=== PATIENT | male | born 1955 | race Caucasian/White ===

== ENCOUNTER 2017-04-01 12:56 | Inpatient (IN) | payer SELFPAY ==
[2017-04-01] VITALS (7 sets, daily range): BP systolic 102–153; BP diastolic 2–77; PULSE 94–121; RESP 18–22; TEMP 97.6–98.8; O2SAT 98–100
[~2017-04-01] VITALS: Ht 180.3 cm; Wt 75.0 kg
[2017-04-01] MEDS ORDERED: SODIUM CHLOR 0.9% 1000 ML INJ 1,000 ML IV ONE (13:18)
[2017-04-01] MEDS ORDERED: LEVE500 PO (13:21)
[2017-04-01] MEDS ORDERED: METO25TA3 PO (13:21)
[2017-04-01] MEDS ORDERED: OXYC1TAB63 PO (13:21)
--- NOTE | 2017-04-01 13:28 | PD ---
HPI Chief Complaint: Wound/Suture/Staple Re-Check Time Seen by Provider: 13:18 Travel History International Travel<30 days: No Contact w/Intl Traveler<30days: No Traveled to known affect area: No History of Present Illness HPI 62-year-old male with history of left shoulder surgery done after a fracture 2 weeks ago at [facility], presents to the ER today because he has been feeling several days of weakness and dizziness, has noticed in the past 4-5 days that there is increased redness in the left shoulder wound area, does not feeling well. He is a fairly poor historian. He states that he has noticed some redness coming down his left shoulder to chest wall area, states it feels a little bit like sunburn. However, he states he has not been in the sun very much. Modifying Factors: None Associated Signs & Symptoms: Left shoulder wound area pain, swelling, redness, general weakness Risk Factors: Left shoulder injury about 2 weeks ago PFSH Past Medical History Arthritis: No Asthma: No Autoimmune Disease: No Blood Disorders: No Anxiety: Yes Depression: Yes Heart Rhythm Problems: No Cancer: Yes (SKIN) Cardiac Catheterization: No Cardiovascular Problems: No High Cholesterol: No Chemotherapy: No Chest Pain: No Congestive Heart Failure: No COPD: No Cerebrovascular Accident: No Diabetes: No Diminished Hearing: No Endocrine: No Gastrointestinal Disorders: No Genitourinary: No Headaches: No Hypertension: No Immune Disorder: No Implanted Vascular Access Dvce: No Musculoskeletal: Yes (HX OF LEFT SCIATICA) Neurologic: Yes Psychiatric: Yes Reproductive: No Respiratory: No Immunizations Current: No Migraines: No Myocardial Infarction: No Radiation Therapy: No Seizures: Yes Sleep Apnea: No Thyroid Disease: No Past Surgical History AICD: No Arteriovenous Shunt: No Coronary Artery Bypass Graft: No Insulin Pump: No Joint Replacement: No Pacemaker: No Other Surgery: Yes (CANCER SURGERY PER PATIENT) Social History Alcohol Use: Yes (4-5 BEERS A DAY) Tobacco Use: Yes (APPROX 10 CIGARETTES A DAY) Substance Use: No Allergies-Medications (Allergen,Severity, Reaction): Coded Allergies: penicillin G (Unverified Allergy, Severe, RASH, 01/24/17) Reported Meds & Prescriptions Reported Meds & Active Scripts Active Reported Oxycodone-Acetaminophen 5-325 mg Tab 1 Tab PO Q6H PRN Metoprolol Tartrate 25 Mg Tab 25 Mg PO BID Keppra (Levetiracetam) 500 Mg Tab 500 Mg PO BID Review of Systems Except as stated in HPI: all other systems reviewed are Neg Physical Exam Narrative GENERAL: Well-developed elderly white male patient who is in moderate distress. Awake and oriented 3. SKIN: Focused skin assessment warm/dry. There is significant erythema and ecchymosis as well as edema over the left anterior shoulder wound area with erythema going down the left chest wall as well. Tender to palpation. HEAD: Atraumatic. Normocephalic. EYES: Pupils equal and round. No scleral icterus. No injection or drainage. ENT: No nasal bleeding or discharge. Mucous membranes pink and moist. NECK: Trachea midline. No JVD. CARDIOVASCULAR: Regular rate and rhythm. No murmur appreciated. RESPIRATORY: No accessory muscle use. Clear to auscultation. Breath sounds equal bilaterally. GASTROINTESTINAL: Abdomen soft, non-tender, nondistended. Hepatic and splenic margins not palpable. MUSCULOSKELETAL: No obvious deformities. No clubbing. No cyanosis. No edema. NEUROLOGICAL: Awake and alert. No obvious cranial nerve deficits. Motor grossly within normal limits. Normal speech. PSYCHIATRIC: Appropriate mood and affect; insight and judgment normal. Data Data Last Documented VS Vital Signs Date Time Temp Pulse Resp B/P (MAP) Pulse Ox O2 Delivery O2 Flow Rate FiO2 04/01/17 13:22 98 Room Air 04/01/17 13:15 98.8 117 20 Orders Orders Electrocardiogram (04/01/17 13:18) Complete Blood Count With Diff (04/01/17 13:18) Comprehensive Metabolic Panel (04/01/17 13:18) Lactic Acid Sepsis Protocol (04/01/17 13:18) Urinalysis - C+S If Indicated (04/01/17 13:18) Blood Culture (04/01/17 13:18) Chest, Single Ap (04/01/17 13:18) Blood Glucose (04/01/17 13:18) Ecg Monitoring (04/01/17 13:18) Iv Access Insert/Monitor (04/01/17 13:18) Oximetry (04/01/17 13:18) Oxygen Administration (04/01/17 13:18) Sodium Chlor 0.9% 1000 Ml Inj (Ns 1000 M (04/01/17 13:18) Shoulder, Limited(2vws) (04/01/17 13:18) Consult Orthopedic (04/01/17 ) Admit Order (Ed Use Only) (04/01/17 15:29) Labs Laboratory Tests Test 04/01/17 13:10 White Blood Count 7.0 TH/MM3 Red Blood Count 2.90 MIL/MM3 Hemoglobin 9.4 GM/DL Hematocrit 26.6 % Mean Corpuscular Volume 91.6 FL Mean Corpuscular Hemoglobin 32.4 PG Mean Corpuscular Hemoglobin Concent 35.4 % Red Cell Distribution Width 16.4 % Platelet Count 523 TH/MM3 Mean Platelet Volume 8.0 FL Neutrophils (%) (Auto) 59.8 % Lymphocytes (%) (Auto) 18.3 % Monocytes (%) (Auto) 21.1 % Eosinophils (%) (Auto) 0.1 % Basophils (%) (Auto) 0.7 % Neutrophils # (Auto) 4.2 TH/MM3 Lymphocytes # (Auto) 1.3 TH/MM3 Monocytes # (Auto) 1.5 TH/MM3 Eosinophils # (Auto) 0.0 TH/MM3 Basophils # (Auto) 0.0 TH/MM3 CBC Comment DIFF FINAL Differential Comment Blood Urea Nitrogen 4 MG/DL Creatinine 0.47 MG/DL Random Glucose 79 MG/DL Total Protein 6.6 GM/DL Albumin 2.4 GM/DL Calcium Level 8.0 MG/DL Alkaline Phosphatase 95 U/L Aspartate Amino Transf (AST/SGOT) 36 U/L Alanine Aminotransferase (ALT/SGPT) 28 U/L Total Bilirubin 0.4 MG/DL Sodium Level 125 MEQ/L Potassium Level 3.4 MEQ/L Chloride Level 92 MEQ/L Carbon Dioxide Level 21.3 MEQ/L Anion Gap 12 MEQ/L Estimat Glomerular Filtration Rate 181 ML/MIN Lactic Acid Level 2.4 mmol/L [facility] Medical Decision Making Medical Screen Exam Complete: Yes Emergency Medical Condition: Yes Medical Record Reviewed: Yes Interpretation(s) Laboratory Tests Test 04/01/17 13:10 Red Blood Count 2.90 MIL/MM3 (4.50-5.90) Hemoglobin 9.4 GM/DL (13.0-17.0) Hematocrit 26.6 % (39.0-51.0) Platelet Count 523 TH/MM3 (150-450) Monocytes (%) (Auto) 21.1 % (0.0-8.0) Monocytes # (Auto) 1.5 TH/MM3 (0-0.9) Blood Urea Nitrogen 4 MG/DL (7-18) Creatinine 0.47 MG/DL (0.60-1.30) Albumin 2.4 GM/DL (3.4-5.0) Calcium Level 8.0 MG/DL (8.5-10.1) Sodium Level 125 MEQ/L (136-145) Potassium Level 3.4 MEQ/L (3.5-5.1) Chloride Level 92 MEQ/L (98-107) Lactic Acid Level 2.4 mmol/L (0.4-2.0) Last 24 hours Impressions Shoulder X-Ray 04/01/178 Signed Impressions: Service Date/Time: Saturday, April 01, 2017 13:48 - CONCLUSION: Proximal humeral fracture with surgical hardware over the humeral head. The hardware does not connected to the humeral shaft. The humeral shaft appears medially and proximally displaced. Severo Ignacio MD Chest X-Ray 04/01/17 7815 Signed Impressions: Service Date/Time: Saturday, April 01, 2017 13:44 - CONCLUSION: No acute cardio pulmonary disease. Zack Osorio Jr., MD Differential Diagnosis Dependent edema versus cellulitis versus wound infection versus sepsis Narrative Course X-rays show hardware dislodgment in the left humerus ORIF area. White count was otherwise unremarkable. At this point, case was discussed with Dr. Duenas who is covering for Dr. Lara before orthopedics, states he would like the patient to be medically admitted and Dr. Lara be who is on-call tomorrow can see the patient. Patient will likely need further surgical care for this issue. Case was discussed with family practice resident service for admission. Diagnosis Primary Impression: Painful orthopaedic hardware Additional Impression: Humeral fracture Admitting Information Admitting Physician Requests: Admit Tash Navarro MD Apr 01, 2017 13:28
[2017-04-01 13:42] LABS: AUTOMATED NEUTROPHIL # 4.2 TH/MM3 (1.8-7.7); BASOPHIL % 0.7 % (0.0-2.0); EOSINOPHIL % 0.1 % (0.0-4.0); HEMATOCRIT 26.6 % (39.0-51.0); HEMO FLAGS DIFF FINAL; LYMPH % 18.3 % (9.0-44.0); LYMPHOCYTE # 1.3 TH/MM3 (1.0-4.8); MEAN CELL VOLUME 91.6 FL (80.0-100.0); MEAN CORPUSCULAR HEMOGLOBIN 32.4 PG (27.0-34.0); MEAN CORPUSCULAR HGB CONC 35.4 % (32.0-36.0); MONO % 21.1 % (0.0-8.0); NEUT % 59.8 % (16.0-70.0); PLATELET COUNT 523 TH/MM3 (150-450); RED CELL DISTRIBUTION WIDTH 16.4 % (11.6-17.2)
[2017-04-01 14:16] LABS: ANION GAP 12 MEQ/L (5-15); AST (GOT) 36 U/L (15-37); BICARBONATE 21.3 MEQ/L (21.0-32.0); BLOOD UREA NITROGEN 4 MG/DL (7-18); CHLORIDE 92 MEQ/L (98-107); GLOMERULAR FILTRATION RATE 181 ML/MIN (>89); POTASSIUM 3.4 MEQ/L (3.5-5.1); SODIUM (NA) 125 MEQ/L (136-145)
--- NOTE | 2017-04-01 14:16 | RADRPT ---
EXAM DATE/TIME: 04/01/2017 13:44 [facility] COMPARISON: CHEST SINGLE AP, February 15, 2016, 19:40. INDICATIONS : Syncope. Possible seizure. MEDICAL HISTORY : Seizures. SURGICAL HISTORY : ORIF left shoulder. ENCOUNTER: Initial ACUITY: 1 day PAIN SCORE: 5/10 LOCATION: Bilateral chest FINDINGS: 2 portable frontal views of the chest show the heart to be normal in size. Lungs are clear. No effusi ons or infiltrates. Old left-sided rib fractures. CONCLUSION: No acute cardio pulmonary disease. Zack Osorio Jr., MD on April 01, 2017 at 14:14 Board Certified Radiologist. This report was verified electronically.
[2017-04-01 14:17] LABS: ALT (GPT) 28 U/L (12-78)
[2017-04-01 14:19] LABS: ALKALINE PHOSPHATASE 95 U/L (45-117); TOTAL BILIRUBIN ADULT 0.4 MG/DL (0.2-1.0)
--- NOTE | 2017-04-01 14:39 | RADRPT ---
EXAM DATE/TIME: 04/01/2017 13:48 [facility] COMPARISON: CHEST SINGLE AP, February 15, 2016, 19:40. CHEST SINGLE AP, April 01, 2017, 13:44. CHEST SINGLE AP, February 05, 2016, 18:13. INDICATIONS : Left shoulder pain. Possible fall. MEDICAL HISTORY : Seizures. SURGICAL HISTORY : ORIF left shoulder. ENCOUNTER: Initial ACUITY: 1 day PAIN SCORE: 10/10 LOCATION: Bilateral chest FINDINGS: There is fracture in the proximal left humeral shaft. The main distal humeral shaft fracture fragment is displaced medially and proximally. There is a surgical plate at the anterior lateral humeral head . This is secured to the humeral head. The distal part of the plate is not connected with the humeral shaft. There are 3 screws seen projecting over the humerus on the AP view. These appear anterior to the humerus on the lateral view. They are thought to be seen at the inferior most aspect of the later al image. The humeral head is grossly aligned with the glenoid. It does appear inferiorly displaced l ikely from hemarthrosis. The left acromioclavicular joint is aligned. Old left-sided rib fractures se en. Skin enio are seen over the left shoulder region. CONCLUSION: Proximal humeral fracture with surgical hardware over the humeral head. The hardware does not connect ed to the humeral shaft. The humeral shaft appears medially and proximally displaced. Severo Ignacio MD on April 01, 2017 at 14:33 Board Certified Radiologist. This report was verified electronically.
[2017-04-01] MEDS ORDERED: ONDANSETRON HCL 4 MG/2 ML VIAL IVP PRN (15:30)
[2017-04-01] MEDS ORDERED: NALOXONE HCL 0.4 MG/ML AMP IV PUSH PRN ×2 (15:30→17:30)
[2017-04-01] MEDS ORDERED: MAGNESIUM HYDROXIDE SUSP 30 ML CUP PO PRN (15:30)
[2017-04-01] MEDS ORDERED: BISACODYL 10 MG SUPP RECTAL PRN (15:30)
[2017-04-01] MEDS ORDERED: SODIUM CHLORIDE 0.9% FLUSH 10 ML FLUSH IV FLUSH PRN (15:30)
[2017-04-01] MEDS ORDERED: LACTULOSE SYRUP 20 GM/30 ML CUP PO PRN (15:30)
[2017-04-01] MEDS ORDERED: SENNOSIDES 8.6 MG TAB PO PRN (15:30)
[2017-04-01 15:33] LABS: LACTIC ACID GHOST NOT REPORTABLE
--- NOTE | 2017-04-01 15:33 | HHI.HP ---
HPI Service Family Medicine Team A Dr. Velez, attending Primary Care Physician No Primary Care Physician Admission Diagnosis left shoulder hardware dislodgment Diagnoses: International Travel<30 Days: No Contact w/Intl Traveler<30days: No History of Present Illness Patient is a 62-year-old male with a history of alcoholism, seizures, and atrial fibrillation who presents after possible fall and found to have hardware displacement. He notes he felt dizzy, lightheaded, and like he was about to fall so decided to go into a local store and seek help. No chest pain. Had difficulty breathing but resolved. He is unsure what causes him to fall. It is "something in the body chemistry." He went to OR at [facility] after a shoulder fracture and had repairs including pinning. He has discharge paperwork with him today which shows he was discharged after workup for seizure versus syncope and after management of left shoulder injury. As noted he had a long- standing seizure disorder prior to that admission in early March 2017 and was not taking his Keppra at that time. He also has a chronic user of alcohol endorsing today that he drinks 4-5 beers daily. Workup at [facility] include CT brain which was negative, x-ray of the left shoulder which showed a minimally comminuted displaced fracture of the surgical neck of the left humerus has a comminuted fracture of the olecranon ( elbow). He received a left ORIF of the humerus and olecranon by Dr. Estrada. Keppra was restarted in the hospital with no noted complications. He is unclear when his follow-up with orthopedic surgery was supposed to be. He continues to have enio in the arm. X-ray in the ED showed displaced hardware in the left shoulder. Review of Systems Constitutional: COMPLAINS OF: Fever (subjective), DENIES: Chills, Change in appetite Eyes: DENIES: Blurred vision, Diplopia Ears, nose, mouth, throat: DENIES: Tinnitus, Hearing loss, Oral lesions, Throat pain, Running Nose Respiratory: COMPLAINS OF: Shortness of breath, DENIES: Cough, Hemoptysis, Sputum production Cardiovascular: COMPLAINS OF: Palpitations, Lower Extremity Edema, DENIES: Chest pain Genitourinary: COMPLAINS OF: Urgency, DENIES: Hematuria, Dysuria Musculoskeletal: COMPLAINS OF: Joint pain (shoulder), DENIES: Joint Swelling, Back pain, Neck pain Integumentary: DENIES: Pruritus, Rash Hematologic/lymphatic: DENIES: Bruising, Lymphadenopathy Neurologic: COMPLAINS OF: Abnormal gait, Seizures, Poor Balance, DENIES: Headache, Localized weakness, Tremor Psychiatric: DENIES: Anxiety, Depression, Suicidal Ideation, Homicidal Ideation Past Family Social History Past Medical History Tachycardia Past Surgical History Left shoulder pinning Reported Medications Reported Meds & Active Scripts Active Reported Oxycodone-Acetaminophen 5-325 mg Tab 1 Tab PO Q6H PRN Metoprolol Tartrate 25 Mg Tab 25 Mg PO BID Keppra (Levetiracetam) 500 Mg Tab 500 Mg PO BID Allergies: Coded Allergies: penicillin G (Unverified Allergy, Severe, RASH, 01/24/17) Family History Refuses to discuss Social History Tobacco: Alcohol: 4-5 can of beers daily, alcoholic Illicit: denies Homeless Physical Exam Vital Signs Vital Signs Date Time Temp Pulse Resp B/P (MAP) Pulse Ox O2 Delivery O2 Flow Rate FiO2 04/01/17 13:22 98 Room Air 04/01/17 13:22 98 Room Air 04/01/17 13:15 98.8 117 20 102/57 (72) 100 Room Air 04/01/17 13:00 98.8 121 20 102/57 (72) Physical Exam GENERAL: Well-developed elderly male who is in no apparent distress. Left shoulder is notable abnormal. SKIN: Warm and dry.There is erythema and ecchymosis as well as edema over the left anterior shoulder wound area with erythema going down the left chest wall as well. Tender to palpation. HEAD: Atraumatic. Normocephalic. EYES: Pupils equal and round. Conjunctival injection noted. No drainage. EOMI. ENT: No nasal bleeding or discharge. Mucous membranes pink and moist. NECK: Trachea midline. No JVD. CARDIOVASCULAR: Tachycardic rate. No murmurs. 2+ pulses distally. RESPIRATORY: No accessory muscle use. Clear to auscultation with no wheezes or rhonchi. Breath sounds equal bilaterally. GASTROINTESTINAL: Abdomen soft, non-tender, nondistended. Hepatic and splenic margins not palpable. MUSCULOSKELETAL: Extremities aside from LUE without clubbing, cyanosis, or edema. No obvious deformities. NEUROLOGICAL: Awake and alert. 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 Motor grossly within normal limits. Five out of 5 muscle strength in the arms and legs. Normal speech. PSYCHIATRIC: Appropriate mood and affect; insight and judgment normal. He is agitated. Laboratory Laboratory Tests Test 04/01/17 13:10 White Blood Count 7.0 Red Blood Count 2.90 Hemoglobin 9.4 Hematocrit 26.6 Mean Corpuscular Volume 91.6 Mean Corpuscular Hemoglobin 32.4 Mean Corpuscular Hemoglobin Concent 35.4 Red Cell Distribution Width 16.4 Platelet Count 523 Mean Platelet Volume 8.0 Neutrophils (%) (Auto) 59.8 Lymphocytes (%) (Auto) 18.3 Monocytes (%) (Auto) 21.1 Eosinophils (%) (Auto) 0.1 Basophils (%) (Auto) 0.7 Neutrophils # (Auto) 4.2 Lymphocytes # (Auto) 1.3 Monocytes # (Auto) 1.5 Eosinophils # (Auto) 0.0 Basophils # (Auto) 0.0 CBC Comment DIFF FINAL Differential Comment Blood Urea Nitrogen 4 Creatinine 0.47 Random Glucose 79 Total Protein 6.6 Albumin 2.4 Calcium Level 8.0 Alkaline Phosphatase 95 Aspartate Amino Transf (AST/SGOT) 36 Alanine Aminotransferase (ALT/SGPT) 28 Total Bilirubin 0.4 Sodium Level 125 Potassium Level 3.4 Chloride Level 92 Carbon Dioxide Level 21.3 Anion Gap 12 Estimat Glomerular Filtration Rate 181 Lactic Acid Level 2.4 Date/Time Source Procedure Growth Status 04/01/17 13:25 Blood Peripheral Aerobic Blood Culture Pending Received 04/01/17 13:25 Blood Peripheral Anaerobic Blood Culture Pending Received Result Diagram: 04/01/17 1310 04/01/17 1310 Imaging Last Impressions Shoulder X-Ray 04/01/171317 Signed Impressions: Service Date/Time: Saturday, April 01, 2017 13:48 - CONCLUSION: Proximal humeral fracture with surgical hardware over the humeral head. The hardware does not connected to the humeral shaft. The humeral shaft appears medially and proximally displaced. Severo Ignacio MD Chest X-Ray 04/01/171317 Signed Impressions: Service Date/Time: Saturday, April 01, 2017 13:44 - CONCLUSION: No acute cardio pulmonary disease. MD Damian Dale Jr.i VTE Risk Assessment Caprini VTE Risk Assessment: Mod/High Risk (score >= 2) Caprini Risk Assessment Model Point Value = 1 Point Value = 2 Point Value = 3 Point Value = 5 Age 41-60 Minor surgery BMI > 25 kg/m2 Swollen legs Varicose veins or History of unexplained or recurrent spontaneous Oral contraceptives or hormone replacement Sepsis (< 1 month) Serious lung disease, including pneumonia (< 1 month) Abnormal pulmonary function Acute myocardial infarction Congestive heart failure (< 1 month) History of inflammatory bowel disease Medical patient at bed rest Age 61-74 Arthroscopic surgery Major open surgery (> 45 min) Laparoscopic surgery (> 45 min) Malignancy Confined to bed (> 72 hours) Immobilizing plaster cast Central venous access Age >= 75 History of VTE Family history of VTE Factor V Leiden Prothrombin [id number] Lupus anticoagulant Anticardiolipin antibodies Elevated serum homocysteine Heparin-induced thrombocytopenia Other congenital or acquired thrombophilia Stroke (< 1 month) Elective arthroplasty Hip, pelvis, or leg fracture Acute spinal cord injury (< 1 month) Prophylaxis Regimen Total Risk Factor Score Risk Level Prophylaxis Regimen 0-1 Low Early ambulation 2 Moderate Order ONE of the following: *Sequential Compression Device (SCD) *Heparin 5000 units SQ BID 3-4 Higher Order ONE of the following medications: *Heparin 5000 units SQ TID *Enoxaparin/Lovenox 40 mg SQ daily (WT < 150 kg, CrCl > 30 mL/min) *Enoxaparin/Lovenox 30 mg SQ daily (WT < 150 kg, CrCl > 10-29 mL/min) *Enoxaparin/Lovenox 30 mg SQ BID (WT < 150 kg, CrCl > 30 mL/min) AND/OR *Sequential Compression Device (SCD) 5 or more Highest Order ONE of the following medications: *Heparin 5000 units SQ TID (Preferred with Epidurals) *Enoxaparin/Lovenox 40 mg SQ daily (WT < 150 kg, CrCl > 30 mL/min) *Enoxaparin/Lovenox 30 mg SQ daily (WT < 150 kg, CrCl > 10-29 mL/min) *Enoxaparin/Lovenox 30 mg SQ BID (WT < 150 kg, CrCl > 30 mL/min) AND *Sequential Compression Device (SCD) Assessment and Plan Assessment and Plan 62M with seizure disorder and recent left shoulder ORIF who presents with displaced hardware in the left humerus. Orthopedic surgery consulted in the ED-- who performed ORIF at [facility] will evaluate the patient tomorrow. Patient will be kept NPO after midnight for this evaluation. He will be admitted with medical management of chronic conditions and pain control Continue home dose Keppra Continue home dose metoprolol Monitor on telemetry CIWA protocol with MVI Pain control with acetaminophen and [place] Code Status Full code Discussed Condition With Dr. Montes De Oca Problem List: (1) Humeral fracture ICD Codes: S42.309A - Unspecified fracture of shaft of humerus, unspecified arm , initial encounter for closed fracture Status: Acute (2) Painful orthopaedic hardware ICD Codes: T84.84XA - Pain due to internal orthopedic prosthetic devices, implants and grafts, initial encounter Status: Acute (3) Frequent falls ICD Codes: R29.6 - Repeated falls Status: Acute (4) Alcohol abuse ICD Codes: F10.10 - Alcohol abuse, uncomplicated Status: Chronic (5) Fluids/Electrolytes/Nutrition/Prophylaxis Plan: Fluids: tolerating PO Electrolytes: monitor and replete as needed Nutrition: heart-healthy diet DVT Prophylaxis: Early ambulation. SCDs. Hold pharmacologic intervention until post-operative GI Prophylaxis: Protonix 40mg daily given alcoholism Disposition: possible discharge 1-2 days post-operatively, pending surgical clearance Physician Certification 2 Midnight Certification Type: Admission for Inpatient Services Order for Inpatient Services The services are ordered in accordance with Medicare regulations or non- Medicare payer requirements, as applicable. In the case of services not specified as inpatient-only, they are appropriately provided as inpatient services in accordance with the 2-midnight benchmark. Estimated LOS (days): 3 days is the estimated time the patient will need to remain in the hospital, assuming treatment plan goals are met and no additional complications. Post-Hospital Plan: Not yet determined Eunice Martinez MD R2 Apr 01, 2017 15:33
[2017-04-01] MEDS: SODIUM CHLOR 0.9% 1000 ML INJ 1,000 ML IV SCH (15:37)
[2017-04-01 15:54] LABS: BLOOD, URINE NEG (NEG); GLUCOSE,URINE NEG (NEG); KETONE, URINE NEG (NEG); NITRITE,URINE NEG (NEG); PH, URINE 5.5 (5.0-8.5); URINE COLOR LIGHT-YELLOW (YELLW/STRAW)
[2017-04-01 16:01] LABS: COMMENT (UR) CATH-CULT NOT IND; CULTURE IF INDICATED CATH CULTURE NOT IND
--- NOTE | 2017-04-01 16:44 | EKG ---
Date Performed: 04/01/2017 Time Performed: 13:55:34 PTAGE: 62 years EKG: SINUS TACHYCARDIA WITH OCCASIONAL SUPRAVENTRICULAR PREMATURE COMPLEXES LOW QRS VOLTAGE IN P RECORDIAL LEADS ABNORMAL RHYTHM ECG PREVIOUS TRACING : 04/29/2016 16.24 Compared to prior tracing no significant change DOCTOR: Martha Ramirez Interpretating Date/Time 04/01/2017 16:43:42
[2017-04-01] MEDS ORDERED: MORPHINE SULFATE 4 MG/ML INJ IV PUSH PRN (17:30)
[2017-04-01] MEDS ORDERED: FLUMAZENIL 0.5 MG/5 ML VIAL IV PUSH PRN (17:30)
[2017-04-01] MEDS ORDERED: LORazepam 2 MG/ML VIAL IV PUSH PRN ×4 (17:30)
[2017-04-01] MEDS ORDERED: LORazepam 1 MG TAB PO PRN (17:30)
[2017-04-01] MEDS ORDERED: LORazepam 2 MG TAB PO PRN (17:30)
[2017-04-01] MEDS ORDERED: ACETAMINOPHEN/HYDROcodone 325 MG/5 MG TAB PO PRN (17:30)
[2017-04-01] MEDS: MULTIVITAMINS/MINERALS THERAPEUTIC TAB PO SCH (18:06)
[2017-04-01] MEDS: THIAMINE HCL 100 MG TAB PO SCH (18:06)
[2017-04-01] MEDS: FOLIC ACID 1 MG TAB PO SCH (18:07)
[2017-04-01] MEDS: ACETAMINOPHEN/HYDROcodone 325 MG/10 MG TAB PO PRN ×2 (18:07→22:41)
[2017-04-01] MEDS: PANTOPRAZOLE SOD 40 MG DELAYED RELEASE TAB PO SCH (18:07)
[2017-04-01 18:34] LABS: MAGNESIUM 1.6 MG/DL (1.5-2.5)
[2017-04-01] MEDS: levETIRAcetam 500 MG TAB PO SCH (20:00)
[2017-04-01] MEDS: DOCUSATE SODIUM 50 MG/SENNA 8.6 MG TAB PO SCH (20:00)
[2017-04-01] MEDS: METOPROLOL TARTRATE 25 MG TAB PO SCH (20:00)
[2017-04-01] MEDS: SODIUM CHLORIDE 0.9% FLUSH 10 ML FLUSH IV FLUSH SCH (20:02)
[2017-04-01] MEDS: ACETAMINOPHEN 325 MG TAB PO PRN (20:02)
[2017-04-01 20:38] LABS: APTT (PATIENT) 42.4 SEC (24.3-30.1); INTERNATIONAL NORMALIZED RATIO 1.1 RATIO; PROTHROMBIN TIME - PATIENT 11.9 SEC (9.8-11.6)
[2017-04-01] MEDS ORDERED: ENALAPRILAT 1.25 MG/ML VIAL IV PUSH PRN (23:00)
[2017-04-02] MEDS: SODIUM CHLOR 0.9% 1000 ML INJ 1,000 ML IV SCH ×3 (00:12→17:36)
[2017-04-02] MEDS: ACETAMINOPHEN/HYDROcodone 325 MG/10 MG TAB PO PRN ×6 (02:20→22:07)
[2017-04-02 04:15] VITALS: BP 146/83; PULSE 101; RESP 18; TEMP 97.8; O2SAT 100
[2017-04-02 06:30] LABS: PROTHROMBIN TIME - PATIENT 11.5 SEC (9.8-11.6)
[2017-04-02 06:34] LABS: ANION GAP 10 MEQ/L (5-15); AST (GOT) 32 U/L (15-37); BICARBONATE 23.7 MEQ/L (21.0-32.0); BLOOD UREA NITROGEN 5 MG/DL (7-18); CHLORIDE 95 MEQ/L (98-107); GLOMERULAR FILTRATION RATE 158 ML/MIN (>89); POTASSIUM 3.4 MEQ/L (3.5-5.1); SODIUM (NA) 129 MEQ/L (136-145)
[2017-04-02 06:35] LABS: AUTOMATED NEUTROPHIL # 3.9 TH/MM3 (1.8-7.7); BASOPHIL % 0.6 % (0.0-2.0); EOSINOPHIL % 0.2 % (0.0-4.0); HEMATOCRIT 24.9 % (39.0-51.0); HEMO FLAGS DIFF FINAL; LYMPH % 16.7 % (9.0-44.0); LYMPHOCYTE # 1.1 TH/MM3 (1.0-4.8); MEAN CELL VOLUME 92.9 FL (80.0-100.0); MEAN CORPUSCULAR HEMOGLOBIN 32.5 PG (27.0-34.0); MONO % 20.9 % (0.0-8.0); NEUT % 61.6 % (16.0-70.0); PLATELET COUNT 507 TH/MM3 (150-450); RED BLOOD COUNT 2.68 MIL/MM3 (4.50-5.90); RED CELL DISTRIBUTION WIDTH 16.6 % (11.6-17.2); WHITE BLOOD COUNT 6.3 TH/MM3 (4.0-11.0)
[2017-04-02 06:36] LABS: ALT (GPT) 27 U/L (12-78)
[2017-04-02 06:38] LABS: ALKALINE PHOSPHATASE 110 U/L (45-117); TOTAL BILIRUBIN ADULT 0.5 MG/DL (0.2-1.0)
--- NOTE | 2017-04-02 07:33 | PD.CONS ---
HPI Service Orthopedic Surgeons Consult Requested By Primary Care Physician No Primary Care Physician Admission Diagnosis left shoulder hardware dislodgment Diagnoses: Chief Complaint: Left shoulder pain History of Present Illness The patient is a 62-year-old homeless, alcoholic, with history of seizure disorder gentleman is approximately 2 weeks status post ORIF of his left proximal humerus and ORIF of his left olecranon after a fall while having a seizure. Patient presented overnight with unclear etiology but states he feels weak, sick, and unable to really walk. However, patient was clearly intoxicated upon arrival and not unable to get a clear history as to injury. He does reports he's had persistent left arm pain since his last admission. He denies any increased numbness or tingling. Patient does still have some weakness in the axillary nerve distribution with his deltoid. Review of Systems Constitutional: DENIES: Fever Endocrine: DENIES: Polyuria Eyes: DENIES: Blurred vision Ears, nose, mouth, throat: COMPLAINS OF: Throat pain Respiratory: DENIES: Cough Cardiovascular: DENIES: Chest pain Gastrointestinal: DENIES: Abdominal pain Genitourinary: DENIES: Urinary frequency Musculoskeletal: COMPLAINS OF: Joint pain, Joint Swelling Integumentary: DENIES: Rash Hematologic/lymphatic: COMPLAINS OF: Bruising Immunologic/allergic: DENIES: Eczema Neurologic: COMPLAINS OF: Seizures, Poor Balance Psychiatric: DENIES: Anxiety Past Family Social History Past Medical History Seizure disorder, noncompliant with medications. Alcohol abuse Past Surgical History 2 weeks status post ORIF left humerus and left olecranon Reported Medications Noncompliant with medications Allergies: Coded Allergies: penicillin G (Unverified Allergy, Severe, RASH, 01/24/17) Active Ordered Medications Current Medications Medications (Trade) Dose Ordered Sig/Nickolas Route Start Time Stop Time Status Last Admin Sodium Chloride 1,000 ml @ 115 mls/hr Q8H42M IV 04/01/17 15:30 04/01/17 15:37 (NS Flush) 2 ml UNSCH PRN IV FLUSH 04/01/17 15:30 (NS Flush) 2 ml BID IV FLUSH 04/01/17 21:00 (Tylenol) 650 mg Q4H PRN PO 04/01/17 15:30 04/01/17 20:02 (Zofran Inj) 4 mg Q6H PRN IVP 04/01/17 15:30 (Narcan Inj) 0.4 mg UNSCH PRN IV PUSH 04/01/17 15:30 (Kimberlyn-Colace) 1 tab BID PO 04/01/17 21:00 04/01/17 20:00 (Milk Of Magnesia Liq) 30 ml Q12H PRN PO 04/01/17 15:30 (Senokot) 17.2 mg Q12H PRN PO 04/01/17 15:30 (Dulcolax Supp) 10 mg DAILY PRN RECTAL 04/01/17 15:30 (Lactulose Liq) 30 ml DAILY PRN PO 04/01/17 15:30 (Keppra) 500 mg BID PO 04/01/17 21:00 04/01/17 20:00 (Lopressor) 25 mg BID PO 04/01/17 21:00 04/01/17 20:00 ([place] 5-325 Mg) 1 tab Q4H PRN PO 04/01/17 17:30 ([place] 10-325 Mg) 1 tab Q4H PRN PO 04/01/17 17:30 04/02/17 06:12 (Morphine Inj) 4 mg Q1H PRN IV PUSH 04/01/17 17:30 (Morphine Inj) 2 mg Q3H PRN IV PUSH 04/01/17 17:30 (Narcan Inj) 0.4 mg UNSCH PRN IV PUSH 04/01/17 17:30 (Folate) 1 mg DAILY PO 04/01/17 17:30 04/06/17 17:29 04/01/17 18:07 (Vitamin B1) 100 mg DAILY PO 04/01/17 17:30 04/01/17 18:06 (Theragran M Tab) 1 tab DAILY PO 04/01/17 17:30 04/06/17 17:29 04/01/17 18:06 (Protonix) 40 mg DAILY PO 04/01/17 17:30 04/01/17 18:07 (Romazicon Inj) 0.2 mg Q1M PRN IV PUSH 04/01/17 17:30 (Ativan) 1 mg Q4H PRN PO 04/01/17 17:30 (Ativan Inj) 1 mg Q4H PRN IV PUSH 04/01/17 17:30 (Ativan) 2 mg Q2H PRN PO 04/01/17 17:30 (Ativan Inj) 2 mg Q2H PRN IV PUSH 04/01/17 17:30 (Ativan Inj) 2 mg Q1H PRN IV PUSH 04/01/17 17:30 (Ativan Inj) 2 mg Q15M PRN IV PUSH 04/01/17 17:30 (Vasotec Inj) 1.25 mg Q6H PRN IV PUSH 04/01/17 23:00 Reported Meds & Active Scripts Active Reported Oxycodone-Acetaminophen 5-325 mg Tab 1 Tab PO Q6H PRN Metoprolol Tartrate 25 Mg Tab 25 Mg PO BID Keppra (Levetiracetam) 500 Mg Tab 500 Mg PO BID Family History Denies Social History Admits to half pack per day smoker and at least 4-5 beers per day Physical Exam Vital Signs Vital Signs Date Time Temp Pulse Resp B/P (MAP) Pulse Ox O2 Delivery O2 Flow Rate FiO2 04/02/17 04:15 97.8 101 18 146/83 (104) 100 04/01/17 23:30 97.6 94 18 115/63 (80) 100 04/01/17 19:55 97.6 107 18 117/69 (85) 100 04/01/17 17:00 98.1 120 22 153/77 (102) 99 04/01/17 16:20 112/2 (38) 100 04/01/17 13:22 98 Room Air 04/01/17 13:22 98 Room Air 04/01/17 13:15 98.8 117 20 102/57 (72) 100 Room Air 04/01/17 13:00 98.8 121 20 102/57 (72) Physical Exam Awake, alert, no acute distress. Patient does appear to have difficulty recalling events but is oriented to person place and time Normocephalic Pupils equal Moist mucous membranes No JVD Nonlabored respirations Soft nontender abdomen Regular rate Left upper extremity: Proximal humerus incision with enio in place with moderate swelling. This does appear similar to prior presentation. Left olecranon with sutures in place with mild erythema but no clear evidence of infection. No drainage. Mild to moderate swelling about the elbow. This does appear improved from last admission. Patient is neurovascularly intact distally but does have decreased sensation and motor in the axillary nerve with his deltoid. This appears stable from prior admission. Radial pulses palpable. Right upper extremity and bilateral lower extremities: No tenderness to palpation: No deformities. Full active range of motion and strength. Radial and dorsalis pedis pulses are palpable. Laboratory Laboratory Tests Test 04/01/17 13:10 04/01/17 15:30 04/01/17 16:15 04/01/17 19:37 White Blood Count 7.0 Red Blood Count 2.90 Hemoglobin 9.4 Hematocrit 26.6 Mean Corpuscular Volume 91.6 Mean Corpuscular Hemoglobin 32.4 Mean Corpuscular Hemoglobin Concent 35.4 Red Cell Distribution Width 16.4 Platelet Count 523 Mean Platelet Volume 8.0 Neutrophils (%) (Auto) 59.8 Lymphocytes (%) (Auto) 18.3 Monocytes (%) (Auto) 21.1 Eosinophils (%) (Auto) 0.1 Basophils (%) (Auto) 0.7 Neutrophils # (Auto) 4.2 Lymphocytes # (Auto) 1.3 Monocytes # (Auto) 1.5 Eosinophils # (Auto) 0.0 Basophils # (Auto) 0.0 CBC Comment DIFF FINAL Differential Comment Blood Urea Nitrogen 4 Creatinine 0.47 Random Glucose 79 Total Protein 6.6 Albumin 2.4 Calcium Level 8.0 Alkaline Phosphatase 95 Aspartate Amino Transf (AST/SGOT) 36 Alanine Aminotransferase (ALT/SGPT) 28 Total Bilirubin 0.4 Sodium Level 125 Potassium Level 3.4 Chloride Level 92 Carbon Dioxide Level 21.3 Anion Gap 12 Estimat Glomerular Filtration Rate 181 Lactic Acid Level 2.4 1.8 Phosphorus Level 3.9 Magnesium Level 1.6 Lipase 116 Ethyl Alcohol Level 161 Urine Color LIGHT-YELLOW Urine Turbidity CLEAR Urine pH 5.5 Urine Specific Brimson 1.003 Urine Protein NEG Urine Glucose (UA) NEG Urine Ketones NEG Urine Occult Blood NEG Urine Nitrite NEG Urine Bilirubin NEG Urine Urobilinogen LESS THAN 2.0 Urine Leukocyte Esterase NEG Urine RBC LESS THAN 1 Urine WBC LESS THAN 1 Microscopic Urinalysis Comment CATH-CULT NOT IND Urine Opiates Screen NEG Urine Barbiturates Screen NEG Urine Amphetamines Screen NEG Urine Benzodiazepines Screen NEG Urine Cocaine Screen NEG Urine Cannabinoids Screen NEG Prothrombin Time 11.9 Prothromb Time International Ratio 1.1 Activated Partial Thromboplast Time 42.4 Test 04/02/17 04:40 White Blood Count 6.3 Red Blood Count 2.68 Hemoglobin 8.7 Hematocrit 24.9 Mean Corpuscular Volume 92.9 Mean Corpuscular Hemoglobin 32.5 Mean Corpuscular Hemoglobin Concent 35.0 Red Cell Distribution Width 16.6 Platelet Count 507 Mean Platelet Volume 8.1 Neutrophils (%) (Auto) 61.6 Lymphocytes (%) (Auto) 16.7 Monocytes (%) (Auto) 20.9 Eosinophils (%) (Auto) 0.2 Basophils (%) (Auto) 0.6 Neutrophils # (Auto) 3.9 Lymphocytes # (Auto) 1.1 Monocytes # (Auto) 1.3 Eosinophils # (Auto) 0.0 Basophils # (Auto) 0.0 CBC Comment DIFF FINAL Differential Comment Prothrombin Time 11.5 Prothromb Time International Ratio 1.0 Blood Urea Nitrogen 5 Creatinine 0.53 Random Glucose 84 Total Protein 6.7 Albumin 2.6 Calcium Level 8.4 Alkaline Phosphatase 110 Aspartate Amino Transf (AST/SGOT) 32 Alanine Aminotransferase (ALT/SGPT) 27 Total Bilirubin 0.5 Sodium Level 129 Potassium Level 3.4 Chloride Level 95 Carbon Dioxide Level 23.7 Anion Gap 10 Estimat Glomerular Filtration Rate 158 Date/Time Source Procedure Growth Status 04/01/17 13:25 Blood Peripheral Aerobic Blood Culture Pending Received 04/01/17 13:25 Blood Peripheral Anaerobic Blood Culture Pending Received Result Diagram: 04/02/17 0440 04/02/17439 Imaging Left shoulder x-rays demonstrate proximal humerus plate which has cut out of the distal aspect and remains in place and the proximal humerus. Surgical neck fracture. Assessment & Plan Assessment and Plan 62-year-old noncompliant, homeless, alcoholic gentleman with failure of ORIF left humerus with unknown etiology 1. I discussed options of management with the patient to include operative versus nonoperative management. Given he has broken his hardware, I would recommend a revision fixation of his left humerus. I discussed with the patient that I'm going to ask my partner Dr. Foote to help with this. I will make him nothing by mouth at midnight for possible fixation tomorrow versus possibly Monday. 2. I will order x-rays of his left olecranon now that he is approximately 2 weeks from that surgery as well. 3. Will ask medicine to optimize the patient for possible surgery tomorrow Lora Estrada MD Apr 02, 2017 07:33
[2017-04-02] MEDS: SODIUM CHLORIDE 0.9% FLUSH 10 ML FLUSH IV FLUSH SCH ×2 (08:31→20:03)
[2017-04-02] MEDS: DOCUSATE SODIUM 50 MG/SENNA 8.6 MG TAB PO SCH ×2 (08:31→20:04)
[2017-04-02] MEDS: THIAMINE HCL 100 MG TAB PO SCH (08:31)
[2017-04-02] MEDS: MULTIVITAMINS/MINERALS THERAPEUTIC TAB PO SCH (08:31)
[2017-04-02] MEDS: FOLIC ACID 1 MG TAB PO SCH (08:32)
[2017-04-02] MEDS: METOPROLOL TARTRATE 25 MG TAB PO SCH ×2 (08:32→20:04)
[2017-04-02] MEDS: levETIRAcetam 500 MG TAB PO SCH ×2 (08:32→20:04)
[2017-04-02] MEDS: PANTOPRAZOLE SOD 40 MG DELAYED RELEASE TAB PO SCH (08:34)
--- NOTE | 2017-04-02 09:37 | HHI.FPPN ---
Subjective Remarks His left arm is still sore / stabbing pain. Constant pain. 8/10 in severity. Pain is made worse with movement. He also reports a diffuse red rash on anterior abdomen x 3 days. Non-itchy. Generalized weakness improved. No EtOH withdrawal symptoms currently. CIWA 2-6. (Odell Eugene MD, R3) Objective Vitals Vital Signs Date Time Temp Pulse Resp B/P (MAP) Pulse Ox O2 Delivery O2 Flow Rate FiO2 04/02/17 04:15 97.8 101 18 146/83 (104) 100 04/01/17 23:30 97.6 94 18 115/63 (80) 100 04/01/17 19:55 97.6 107 18 117/69 (85) 100 04/01/17 17:00 98.1 120 22 153/77 (102) 99 04/01/17 16:20 112/2 (38) 100 04/01/17 13:22 98 Room Air 04/01/17 13:22 98 Room Air 04/01/17 13:15 98.8 117 20 102/57 (72) 100 Room Air 04/01/17 13:00 98.8 121 20 102/57 (72) I/O 04/01/17 04/01/17 04/01/17 04/02/17 04/02/17 04/02/17 07:00 15:00 23:00 07:00 15:00 23:00 Intake Total 960 ml 1880 ml Balance 960 ml 1880 ml Intake Oral 960 ml 880 ml IV Total 1000 ml # Voids 3 4 # Bowel Movements 0 0 (Odell Eugene MD, R3) Result Diagram: 04/02/17 0440 04/02/17 0440 Objective Remarks GEN: NAD, sitting on edge of bed. Slightly disheveled. HEENT: PEERL CV: RRR, RESP: Diffuse wheezes throughout Left Arm: in sling and 2+ pulses to radial artery. Full sensation. (Odell Eugene MD, R3) A/P Assessment and Plan 62M with seizure disorder and recent left shoulder ORIF who presents with displaced hardware in the left humerus. Evaluated by ORTHO, Dr. Estrada. We appreciate their assistance. Likely will need revision fixation of left humerus given his broken hardware. He will be admitted with medical management of chronic conditions and pain control Continue home dose Keppra Continue home dose metoprolol Monitor on telemetry CIWA protocol with MVI, EtOH level 161 on admission. Anemia: 8.7 trend H&H, get Hemoccult stool. transfuse < 7.0 Thrombocytosis: Continue to monitor; likely 2/2 EtOH K+ 3.4: Given KCL 30 mEQ Pain control with acetaminophen and [place] (Odell Eugene MD, R3) Attending Attestation Table rounds were conducted about patients admission with Dr Gillette, Dr Martinez, Dr Montes De Oca and Dr Swain, EMR reviewed, patient was then seen and examined, Agree with contents os note, See Orders. (Rachid Velez MD) Problem List: (1) Humeral fracture ICD Codes: S42.309A - Unspecified fracture of shaft of humerus, unspecified arm , initial encounter for closed fracture Status: Acute (2) Painful orthopaedic hardware ICD Codes: T84.84XA - Pain due to internal orthopedic prosthetic devices, implants and grafts, initial encounter Status: Acute (3) Frequent falls ICD Codes: R29.6 - Repeated falls Status: Acute (4) Alcohol abuse ICD Codes: F10.10 - Alcohol abuse, uncomplicated Status: Chronic (5) Fluids/Electrolytes/Nutrition/Prophylaxis Plan: Fluids: tolerating PO Electrolytes: monitor and replete as needed Nutrition: heart-healthy diet DVT Prophylaxis: Early ambulation. SCDs. Hold pharmacologic intervention until post-operative GI Prophylaxis: Protonix 40mg daily given alcoholism Disposition: possible discharge 1-2 days post-operatively, pending surgical clearance SDW Dr. Rosie Martinez and Dr. Montes De Oac (6) Hypokalemia ICD Codes: E87.6 - Hypokalemia Status: Resolved (7) Chronic hyponatremia ICD Codes: E87.1 - Hypo-osmolality and hyponatremia Status: Acute (8) Cellulitis of abdominal wall ICD Codes: L03.311 - Cellulitis of abdominal wall (Odell Eugene MD, R3) Odell Eugene MD, R3 Apr 02, 2017 09:37 Rachid Velez MD Apr 03, 2017 18:44
[2017-04-02] MEDS ORDERED: POTASSIUM CHLORIDE 10 MEQ CONTROLLED RELEASE TAB PO ONE (12:30)
--- NOTE | 2017-04-02 13:21 | EKG ---
Date Performed: 04/01/2017 Time Performed: 22:32:34 PTAGE: 62 years EKG: Sinus rhythm NORMAL ECG compare to PREVIOUS TRACING : 04/01/2017 13.55 HR has slowed DOCTOR: Martha Ramirez Interpretating Date/Time 04/02/2017 13:20:52
[2017-04-02 16:00] VITALS: BP 132/73; PULSE 100; RESP 18; TEMP 96.6; O2SAT 100
[2017-04-02] MEDS: ACETAMINOPHEN 325 MG TAB PO PRN (20:03)
[2017-04-02 20:10] VITALS: BP 158/81; PULSE 100; RESP 18; TEMP 96.3; O2SAT 99
--- NOTE | 2017-04-02 21:53 | RADRPT ---
EXAM DATE/TIME: 04/02/2017 09:58 [facility] COMPARISON: No previous studies available for comparison. INDICATIONS : Post op pain MEDICAL HISTORY : Seizures. SURGICAL HISTORY : ORIF left shoulder. ENCOUNTER: Initial ACUITY: 2 days PAIN SCORE: 9/10 LOCATION: Left upper extremity FINDINGS: Two view examination of the left elbow demonstrates plate and screw fixation proximal humerus across comminuted fracture. Soft tissue swelling present. Positive joint effusion. CONCLUSION: Plate and screw fixation proximal humerus across comminuted fracture. Near-anatomic alignment. Positi ve joint effusion. Rg Nuñez MD on April 02, 2017 at 21:50 Board Certified Radiologist. This report was verified electronically.
[2017-04-02 23:40] VITALS: BP 133/74; PULSE 99; RESP 18; TEMP 96.1; O2SAT 100
[2017-04-03] MEDS ORDERED: POVIDONE IODINE 5% (ANTISEPSIS KIT) 4 APPLICATIONS EACH NARE PRN (00:45)
[2017-04-03] MEDS ORDERED: CHLORHEXIDINE GLUCONATE 2 % 1 PACK (2 CLOTHS) TOPICAL PRN (00:45)
[2017-04-03] MEDS ORDERED: INSULIN HUMAN REGULAR 1,000 UNITS/10 ML VIAL SQ PRN (00:45)
[2017-04-03] MEDS ORDERED: METOPROLOL TARTRATE 25 MG TAB PO PRN (00:45)
[2017-04-03] MEDS ORDERED: SODIUM CHLORID 0.9% 500 ML IV PRN (00:45)
[2017-04-03] MEDS ORDERED: LACTATED RINGER'S 1000 ML IV PRN (00:45)
[2017-04-03 03:10] VITALS: BP 126/74; PULSE 110; RESP 18; TEMP 97.9; O2SAT 100
[2017-04-03] MEDS: SODIUM CHLOR 0.9% 1000 ML INJ 1,000 ML IV SCH ×3 (03:11→19:42)
--- NOTE | 2017-04-03 06:59 | PD.ORT.PN ---
Subjective Subjective Remarks patient reported to ED intoxicated. had previous ORIF of left shoulder with Dr Estrada. Patient states has not been using arm and had no falls. He is not sure how he re-injured his shoulder Objective Vitals Vital Signs Date Time Temp Pulse Resp B/P (MAP) Pulse Ox O2 Delivery O2 Flow Rate FiO2 04/03/17 03:10 97.9 110 18 126/74 (91) 100 04/02/17 23:40 96.1 99 18 133/74 (93) 100 04/02/17 20:10 96.3 100 18 158/81 (106) 99 04/02/17 16:00 96.6 100 18 132/73 (92) 100 I/O 04/02/17 04/02/17 04/02/17 04/03/17 04/03/17 04/03/17 07:00 15:00 23:00 07:00 15:00 23:00 Intake Total 1880 ml 720 ml 780 ml 1380 ml Output Total 550 ml 450 ml Balance 1880 ml 720 ml 230 ml 930 ml Intake Oral 880 ml 720 ml 680 ml 480 ml IV Total 1000 ml 100 ml 900 ml Output Urine Total 550 ml 450 ml # Voids 4 4 # Bowel Movements 0 0 0 0 Result Diagram: 04/02/1743904/02/17439 Objective Remarks LUE: +swelling of arm. +sling. NVI Assessment & Plan Assessment and Plan 62-year-old noncompliant, homeless, alcoholic gentleman with failure of ORIF left humerus with unknown etiology -NWB -resume diet -npo after MN -sign consents -plan for surgery tomorrow Raul Diamond Apr 03, 2017 06:59
[2017-04-03 07:04] LABS: AUTOMATED NEUTROPHIL # 4.6 TH/MM3 (1.8-7.7); BASOPHIL % 0.6 % (0.0-2.0); EOSINOPHIL # 0.1 TH/MM3 (0-0.4); LYMPH % 17.1 % (9.0-44.0); LYMPHOCYTE # 1.2 TH/MM3 (1.0-4.8); MEAN CELL VOLUME 91.6 FL (80.0-100.0); MEAN CORPUSCULAR HEMOGLOBIN 31.5 PG (27.0-34.0); MEAN CORPUSCULAR HGB CONC 34.4 % (32.0-36.0); MONO % 16.2 % (0.0-8.0); NEUT % 65.1 % (16.0-70.0); PLATELET COUNT 469 TH/MM3 (150-450); RED BLOOD COUNT 2.72 MIL/MM3 (4.50-5.90); RED CELL DISTRIBUTION WIDTH 15.9 % (11.6-17.2)
[2017-04-03 07:07] LABS: HEMO FLAGS DIFF FINAL
[2017-04-03 07:29] LABS: BICARBONATE 23.4 MEQ/L (21.0-32.0); POTASSIUM 3.8 MEQ/L (3.5-5.1)
[2017-04-03 08:00] VITALS: BP 136/77; PULSE 120; RESP 20; TEMP 98.2; O2SAT 98
[2017-04-03] MEDS: SODIUM CHLORIDE 0.9% FLUSH 10 ML FLUSH IV FLUSH SCH ×2 (09:00→20:34)
[2017-04-03] MEDS: FOLIC ACID 1 MG TAB PO SCH (09:08)
[2017-04-03] MEDS: THIAMINE HCL 100 MG TAB PO SCH (09:08)
[2017-04-03] MEDS: POTASSIUM CHLORIDE 10 MEQ CONTROLLED RELEASE TAB PO SCH (09:08)
[2017-04-03] MEDS: levETIRAcetam 500 MG TAB PO SCH ×2 (09:08→20:34)
[2017-04-03] MEDS: PANTOPRAZOLE SOD 40 MG DELAYED RELEASE TAB PO SCH (09:08)
[2017-04-03] MEDS: MULTIVITAMINS/MINERALS THERAPEUTIC TAB PO SCH (09:09)
[2017-04-03] MEDS: DOCUSATE SODIUM 50 MG/SENNA 8.6 MG TAB PO SCH ×2 (09:09→20:34)
[2017-04-03] MEDS: METOPROLOL TARTRATE 25 MG TAB PO SCH ×2 (09:09→20:34)
[2017-04-03] MEDS: ACETAMINOPHEN/HYDROcodone 325 MG/10 MG TAB PO PRN ×4 (09:11→23:30)
--- NOTE | 2017-04-03 11:02 | HHI.FPPN ---
Subjective Remarks Patient states that he is doing okay this morning. He is having some shortness of breath at rest and with exertion. He does not use inhalers at home nor has he ever used them. He also notes some swelling of his left arm. His surgery is scheduled for tomorrow. He feels like the skin on his abdomen is more sore than before. No fevers or chills, no chest pain, no abdominal pain, no nausea or vomiting, no diarrhea or constipation. Objective Vitals Vital Signs Date Time Temp Pulse Resp B/P (MAP) Pulse Ox O2 Delivery O2 Flow Rate FiO2 04/03/17 08:00 98.2 120 20 136/77 (96) 98 04/03/17 03:10 97.9 110 18 126/74 (91) 100 04/02/17 23:40 96.1 99 18 133/74 (93) 100 04/02/17 20:10 96.3 100 18 158/81 (106) 99 04/02/17 16:00 96.6 100 18 132/73 (92) 100 I/O 04/02/17 04/02/17 04/02/17 04/03/17 04/03/17 04/03/17 07:00 15:00 23:00 07:00 15:00 23:00 Intake Total 1880 ml 720 ml 780 ml 1380 ml Output Total 550 ml 450 ml Balance 1880 ml 720 ml 230 ml 930 ml Intake Oral 880 ml 720 ml 680 ml 480 ml IV Total 1000 ml 100 ml 900 ml Output Urine Total 550 ml 450 ml # Voids 4 4 # Bowel Movements 0 0 0 0 Result Diagram: 04/03/17 0626 04/03/17 0626 Imaging Last Impressions Elbow X-Ray 04/02/17 0000 Signed Impressions: Service Date/Time: Sunday, April 02, 2017 09:58 - CONCLUSION: Plate and screw fixation proximal humerus across comminuted fracture. Near-anatomic alignment. Positive joint effusion. Rg Nuñez MD Shoulder X-Ray 04/01/17 [id number] Signed Impressions: Service Date/Time: Saturday, April 01, 2017 13:48 - CONCLUSION: Proximal humeral fracture with surgical hardware over the humeral head. The hardware does not connected to the humeral shaft. The humeral shaft appears medially and proximally displaced. Severo Ignacio MD Chest X-Ray 04/01/17 3198 Signed Impressions: Service Date/Time: Saturday, April 01, 2017 13:44 - CONCLUSION: No acute cardio pulmonary disease. Zack Osorio Jr., MD Objective Remarks GENERAL: Well-nourished, well-developed patient sitting at the edge of the bed, in no acute distress with a sling on his leg arm0. SKIN: Warm and dry. slightly erythematous on abdomen, but greatly improved from yesterday. HEAD: Normocephalic. EYES: No scleral icterus. No injection or drainage. NECK: Supple, trachea midline. No JVD or lymphadenopathy. CARDIOVASCULAR: Regular rate and rhythm without murmurs, gallops, or rubs. soft diffuse wheezes RESPIRATORY: Breath sounds equal bilaterally. No accessory muscle use. GASTROINTESTINAL: Abdomen soft, non-tender, nondistended. EXTREMITIES: No cyanosis, or edema. NEUROLOGICAL: Awake, alert. Non-focal. A/P Assessment and Plan 62M with seizure disorder and recent left shoulder ORIF who presents with displaced hardware in the left humerus. Evaluated by ORTHO, Dr. Estrada. We appreciate their assistance. Likely will need revision fixation of left humerus given his broken hardware. (to be done tomorrow, 04/04) NPO after midnight tonight He will be admitted with medical management of chronic conditions and pain control Continue home dose Keppra Continue home dose metoprolol Monitor on telemetry CIWA protocol with MVI, EtOH level 161 on admission. Anemia: 8.7 trend H&H, get Hemoccult stool. transfuse < 7.0 Thrombocytosis: Continue to monitor; likely 2/2 EtOH K+ 3.4: Given KCL 30 mEQ Pain control with acetaminophen and [place] Discharge Planning upon clearance by orthopedics Problem List: (1) Humeral fracture ICD Codes: S42.309A - Unspecified fracture of shaft of humerus, unspecified arm , initial encounter for closed fracture Status: Acute (2) Painful orthopaedic hardware ICD Codes: T84.84XA - Pain due to internal orthopedic prosthetic devices, implants and grafts, initial encounter Status: Acute (3) Frequent falls ICD Codes: R29.6 - Repeated falls Status: Acute (4) Alcohol abuse ICD Codes: F10.10 - Alcohol abuse, uncomplicated Status: Chronic (5) Fluids/Electrolytes/Nutrition/Prophylaxis Plan: Fluids: tolerating PO Electrolytes: monitor and replete as needed Nutrition: heart-healthy diet DVT Prophylaxis: Early ambulation. SCDs. Hold pharmacologic intervention until post-operative GI Prophylaxis: Protonix 40mg daily given alcoholism Disposition: possible discharge 1-2 days post-operatively, pending surgical clearance SDW Dr. Rosie Martinez and Dr. Montes De Oca (6) Hypokalemia ICD Codes: E87.6 - Hypokalemia Status: Resolved (7) Chronic hyponatremia ICD Codes: E87.1 - Hypo-osmolality and hyponatremia Status: Acute (8) Cellulitis of abdominal wall ICD Codes: L03.311 - Cellulitis of abdominal wall Dora Montes De Oca MD R1 Apr 03, 2017 11:02
[2017-04-03 12:00] VITALS: BP 104/64; PULSE 106; RESP 18; TEMP 96.7; O2SAT 100
[2017-04-03 16:00] VITALS: BP 111/71; PULSE 109; RESP 18; TEMP 98.6; O2SAT 100
[2017-04-03 20:00] VITALS: BP 112/59; PULSE 109; RESP 18; TEMP 98.2; O2SAT 98
[2017-04-04] VITALS (7 sets, daily range): BP systolic 107–155; BP diastolic 66–96; PULSE 87–116; RESP 17–18; TEMP 97–98; O2SAT 96–100
[2017-04-04] MEDS: SODIUM CHLOR 0.9% 1000 ML INJ 1,000 ML IV SCH ×3 (02:55→21:48)
--- NOTE | 2017-04-04 07:14 | PD.ORT.PN ---
Subjective Subjective Remarks s/p left proximal humerus fx with HW failure no changes Objective Vitals Vital Signs Date Time Temp Pulse Resp B/P (MAP) Pulse Ox O2 Delivery O2 Flow Rate FiO2 04/04/17 01:12 98.0 102 17 107/87 (94) 97 04/03/17 20:00 98.2 109 18 112/59 (76) 98 04/03/17 16:00 98.6 109 18 111/71 (84) 100 04/03/17 12:00 96.7 106 18 104/64 (77) 100 04/03/17 08:00 98.2 120 20 136/77 (96) 98 I/O 04/03/17 04/03/17 04/03/17 04/04/17 04/04/17 04/04/17 07:00 15:00 23:00 07:00 15:00 23:00 Intake Total 1380 ml 1120 ml 990 ml Output Total 450 ml 650 ml Balance 930 ml 470 ml 990 ml Intake Oral 480 ml 1020 ml IV Total 900 ml 100 ml 990 ml Output Urine Total 450 ml 650 ml # Voids 3 # Bowel Movements 0 1 0 Result Diagram: 04/03/1762504/03/17625 Objective Remarks LUE: +swelling of arm. +sling. NVI Assessment & Plan Assessment and Plan 62-year-old noncompliant, homeless, alcoholic gentleman with failure of ORIF left humerus with unknown etiology -sign consents -surgery today Raul Diamond Apr 04, 2017 07:14
[2017-04-04] MEDS: levETIRAcetam 500 MG TAB PO SCH ×2 (08:15→20:56)
[2017-04-04] MEDS: METOPROLOL TARTRATE 25 MG TAB PO SCH ×2 (08:15→20:56)
[2017-04-04] MEDS: ACETAMINOPHEN/HYDROcodone 325 MG/10 MG TAB PO PRN ×3 (08:16→20:57)
[2017-04-04] MEDS: SODIUM CHLORIDE 0.9% FLUSH 10 ML FLUSH IV FLUSH SCH (08:19)
[2017-04-04] MEDS: THIAMINE HCL 100 MG TAB PO SCH (08:20)
[2017-04-04] MEDS: POTASSIUM CHLORIDE 10 MEQ CONTROLLED RELEASE TAB PO SCH (08:20)
[2017-04-04] MEDS: MULTIVITAMINS/MINERALS THERAPEUTIC TAB PO SCH (08:20)
[2017-04-04] MEDS: FOLIC ACID 1 MG TAB PO SCH (08:20)
[2017-04-04] MEDS: PANTOPRAZOLE SOD 40 MG DELAYED RELEASE TAB PO SCH (08:20)
[2017-04-04] MEDS: DOCUSATE SODIUM 50 MG/SENNA 8.6 MG TAB PO SCH ×2 (08:20→20:56)
[2017-04-04 09:14] LABS: AUTOMATED NEUTROPHIL # 2.3 TH/MM3 (1.8-7.7); BASOPHIL % 0.9 % (0.0-2.0); EOSINOPHIL # 0.1 TH/MM3 (0-0.4); EOSINOPHIL % 2.4 % (0.0-4.0); HEMATOCRIT 21.4 % (39.0-51.0); HEMO FLAGS DIFF FINAL; LYMPHOCYTE # 1.7 TH/MM3 (1.0-4.8); MEAN CELL VOLUME 92.6 FL (80.0-100.0); MEAN CORPUSCULAR HEMOGLOBIN 32.2 PG (27.0-34.0); MEAN CORPUSCULAR HGB CONC 34.7 % (32.0-36.0); MONO % 20.1 % (0.0-8.0); NEUT % 43.6 % (16.0-70.0); PLATELET COUNT 422 TH/MM3 (150-450); RED BLOOD COUNT 2.31 MIL/MM3 (4.50-5.90); RED CELL DISTRIBUTION WIDTH 16.1 % (11.6-17.2); WHITE BLOOD COUNT 5.2 TH/MM3 (4.0-11.0)
--- NOTE | 2017-04-04 10:11 | HHI.FPPN ---
Subjective Remarks Patient was seen ad examined this morning. His pain is well-controlled. He denies chest pain, shortness or breath, n/v. He is drinking clear liquids this morning to d/c at 11am for OR procedure later today. Objective Vitals Vital Signs Date Time Temp Pulse Resp B/P (MAP) Pulse Ox O2 Delivery O2 Flow Rate FiO2 04/04/17 08:00 97.6 110 17 153/86 (108) 96 04/04/17 04:45 97.6 102 17 126/70 (88) 97 04/04/17 01:12 98.0 102 17 107/87 (94) 97 04/03/17 20:00 98.2 109 18 112/59 (76) 98 04/03/17 16:00 98.6 109 18 111/71 (84) 100 04/03/17 12:00 96.7 106 18 104/64 (77) 100 I/O 04/03/17 04/03/17 04/03/17 04/04/17 04/04/17 04/04/17 07:00 15:00 23:00 07:00 15:00 23:00 Intake Total 1380 ml 1120 ml 990 ml Output Total 450 ml 650 ml 600 ml Balance 930 ml 470 ml 390 ml Intake Oral 480 ml 1020 ml 0 ml IV Total 900 ml 100 ml 990 ml Output Urine Total 450 ml 650 ml 600 ml # Voids 3 # Bowel Movements 0 1 0 0 Result Diagram: 04/04/17 0826 04/03/17 0626 Imaging Last Impressions Elbow X-Ray 04/02/17 0000 Signed Impressions: Service Date/Time: Sunday, April 02, 2017 09:58 - CONCLUSION: Plate and screw fixation proximal humerus across comminuted fracture. Near-anatomic alignment. Positive joint effusion. Rg Nuñez MD Shoulder X-Ray 04/01/17 1318 Signed Impressions: Service Date/Time: Saturday, April 01, 2017 13:48 - CONCLUSION: Proximal humeral fracture with surgical hardware over the humeral head. The hardware does not connected to the humeral shaft. The humeral shaft appears medially and proximally displaced. Severo Ignacio MD Chest X-Ray 04/01/17 1318 Signed Impressions: Service Date/Time: Saturday, April 01, 2017 13:44 - CONCLUSION: No acute cardio pulmonary disease. Zack Osorio Jr., MD Objective Remarks GENERAL: Well-nourished, well-developed patient sitting at the edge of the bed, in no acute distress with a sling on his leg arm. Anterior left upper arm with enio intact. SKIN: Warm and dry. Slightly erythematous on abdomen and left shoulder, but greatly improved from yesterday. HEAD: Normocephalic. Atraumatic. EYES: No scleral icterus. No injection or drainage. NECK: Supple, trachea midline. No JVD or lymphadenopathy. CARDIOVASCULAR: Regular rate and rhythm without murmurs, gallops, or rubs. Soft diffuse wheezes improved. RESPIRATORY: Breath sounds equal bilaterally. No accessory muscle use. GASTROINTESTINAL: Abdomen soft, non-tender, nondistended. EXTREMITIES: No cyanosis, or edema. NEUROLOGICAL: Awake, alert. Non-focal. Medications and IVs Inpatient Medications Acetaminophen (Tylenol) 650 mg Q4H PRN PO TEMP > 100.4, PAIN 1-2 Last administered on 04/02/17 20:03; Start 04/01/17 at 15:30 Acetaminophen/ Hydrocodone Bitart ([place] 5-325 Mg) 1 tab Q4H PRN PO PAIN SCALE 3 TO 5; Start 04/01/17 at 17:30 Acetaminophen/ Hydrocodone Bitart ([place] 10-325 Mg) 1 tab Q4H PRN PO PAIN SCALE 6 TO 10 Last administered on 04/04/17 08:16; Start 04/01/17 at 17:30 Bisacodyl (Dulcolax Supp) 10 mg DAILY PRN RECTAL SEVERE CONSITIPATION; Start 04/01/17 at 15:30 Cefazolin Sodium 1000 mg/Sodium Chloride 100 ml @ 200 mls/hr Q8H IV Last administered on 04/04/17 04:12; Start 04/02/17 at 12:00 Chlorhexidine Gluconate (Chlorhexidine 2% Cloth) 3 pack ROTOFORMER BACKTENDER PRN TOPICAL SEE LABEL COMMENTS; Start 04/03/17 at 00:45; Stop 04/06/17 at 00:44 Enalaprilat (Vasotec Inj) 1.25 mg Q6H PRN IV PUSH SBP> OR = 180, DBP> OR = 100 ; Start 04/01/17 at 23:00 Flumazenil (Romazicon Inj) 0.2 mg Q1M PRN IV PUSH SEE LABEL COMMENTS; Start at 17:30 Folic Acid (Folate) 1 mg DAILY PO Last administered on 04/03/17 09:08; Start 04/01/17 at 17:30; Stop 04/06/17 at 17:29 Insulin Human Regular (NovoLIN R INJ) See Protocol Table ... ROTOFORMER BACKTENDER PRN SQ SEE PROTOCOL TABLE; Start 04/03/17 at 00:45; Stop 04/06/17 at 00:44 Lactated Ringer's 1,000 ml @ 30 mls/hr Q24H PRN IV SEE LABEL COMMENTS Last administered on 04/03/17 05:37; Start 04/03/17 at 00:45; Stop 04/06/17 at 00 :44 Lactulose (Lactulose Liq) 30 ml DAILY PRN PO SEVERE CONSITIPATION; Start 04/01 at 15:30 Levetriacetam (Keppra) 500 mg BID PO Last administered on 04/04/17 08:15; Start 04/01/17 at 21:00 Lorazepam (Ativan Inj) 2 mg Q15M PRN IV PUSH CIWA > 20; Start 04/01/17 at 17: 30 Lorazepam (Ativan) 2 mg Q2H PRN PO CIWA 11-14; Start 04/01/17 at 17:30 Magnesium Hydroxide (Milk Of Magnesia Liq) 30 ml Q12H PRN PO Mild constipation ; Start 04/01/17 at 15:30 Metoprolol Tartrate (Lopressor) 25 mg ROTOFORMER BACKTENDER PRN PO SEE LABEL COMMENTS; Start 04/03/17 at 00:45; Stop 04/06/17 at 00:44 Morphine Sulfate (Morphine Inj) 2 mg Q3H PRN IV PUSH BREAKTHROUGH PAIN; Start 04/01/17 at 17:30 Multivitamins/ Minerals Therapeutic (Theragran M Tab) 1 tab DAILY PO Last administered on 04/03/17 09:09; Start 04/01/17 at 17:30; Stop 04/06/17 at 17 :29 Naloxone HCl (Narcan Inj) 0.4 mg UNSCH PRN IV PUSH SEE LABEL COMMENTS; Start 04/01/17 at 17:30 Ondansetron HCl (Zofran Inj) 4 mg Q6H PRN IVP NAUSEA OR VOMITING Last administered on 04/02/17 08:30; Start 04/01/17 at 15:30 Pantoprazole Sodium (Protonix) 40 mg DAILY PO Last administered on 04/03/17 09:08; Start 04/01/17 at 17:30 Potassium Chloride (KCl) 30 meq DAILY PO Last administered on 04/03/17 09:08 ; Start 04/03/17 at 09:00 Povidone Iodine (Betadine 5% Antisepsis Kit) 1 applic ROTOFORMER BACKTENDER PRN EACH NARE SEE LABEL COMMENTS; Start 04/03/17 at 00:45; Stop 04/06/17 at 00:44 Senna/Docusate Sodium (Kimberlyn-Colace) 1 tab BID PO Last administered on 20:34; Start 04/01/17 at 21:00 Sennosides (Senokot) 17.2 mg Q12H PRN PO Moderate constipation; Start at 15:30 Sodium Chloride 500 ml @ 30 mls/hr [id number] PRN IV SEE LABEL COMMENTS; Start at 00:45; Stop 04/06/17 at 00:44 Sodium Chloride (NS Flush) 2 ml BID IV FLUSH Last administered on 04/03/17 20 :34; Start 04/01/17 at 21:00 Thiamine HCl (Vitamin B1) 100 mg DAILY PO Last administered on 04/03/17 09:08 ; Start 04/01/17 at 17:30 Urinary Catheter: No Vascular Central Line Catheter: No A/P Assessment and Plan 62M with seizure disorder and alcoholism and recent left shoulder ORIF who presents with displaced hardware in the left humerus. He was admitted with medical management of chronic conditions and pain control Discharge Planning Upon clearance by orthopedics Problem List: (1) Humeral fracture ICD Codes: S42.309A - Unspecified fracture of shaft of humerus, unspecified arm , initial encounter for closed fracture Status: Acute Plan: Evaluated by Ortho, Dr. Estrada. We appreciate their assistance. Likely will need revision fixation of left humerus given his broken hardware, scheduled 04/05/17 Pain control with acetaminophen and [place] (2) Painful orthopaedic hardware ICD Codes: T84.84XA - Pain due to internal orthopedic prosthetic devices, implants and grafts, initial encounter Status: Acute Plan: As above (3) Cellulitis of abdominal wall ICD Codes: L03.311 - Cellulitis of abdominal wall Status: Acute Plan: Patient with cellulitis of abdominal wall and left shoulder, improving. Likely related to DVT prophylaxis entry sites given location and surgical site on left arm. Not febrile, not meeting sepsis criteria since admission * On Ancef 1g q8hr IV (04/03 - ) * Monitor for signs of worsening infection, fever (4) Frequent falls ICD Codes: R29.6 - Repeated falls Status: Chronic Plan: Chronic, likely related to alcoholism. No evidence of seizure prior to admission. Fall precautions PT evaluation (5) Alcohol abuse ICD Codes: F10.10 - Alcohol abuse, uncomplicated Status: Chronic Plan: Continue home dose Keppra CIWA protocol with MVI, EtOH level 161 on admission (6) Chronic hyponatremia ICD Codes: E87.1 - Hypo-osmolality and hyponatremia Status: Acute Plan: Monitor and replete as needed Likely related to poor nutrition given homelessness (7) Hypokalemia ICD Codes: E87.6 - Hypokalemia Status: Resolved (8) Hx of cardiac arrhythmia ICD Codes: Z86.79 - Personal history of other diseases of the circulatory system Status: Chronic Plan: Continue home dose metoprolol Monitor on telemetry (9) Fluids/Electrolytes/Nutrition/Prophylaxis Plan: Fluids: tolerating PO Electrolytes: monitor and replete as needed Nutrition: heart-healthy diet, NPO preoperatively DVT Prophylaxis: Early ambulation. SCDs. Hold pharmacologic intervention until post-operative, plan to start pharmacologic PPX 04/05 GI Prophylaxis: Protonix 40mg daily given alcoholism Disposition: possible discharge 1-2 days post-operatively, pending surgical clearance Eunice Martinez MD R2 Apr 04, 2017 10:11
[2017-04-04 10:20] LABS: ALT (GPT) 17 U/L (12-78); ANION GAP 8 MEQ/L (5-15); AST (GOT) 18 U/L (15-37); BICARBONATE 24.6 MEQ/L (21.0-32.0); BLOOD UREA NITROGEN 1 MG/DL (7-18); CHLORIDE 99 MEQ/L (98-107); GLOMERULAR FILTRATION RATE 168 ML/MIN (>89); POTASSIUM 3.5 MEQ/L (3.5-5.1); SODIUM (NA) 132 MEQ/L (136-145)
[2017-04-04 10:21] LABS: ALKALINE PHOSPHATASE 98 U/L (45-117); TOTAL BILIRUBIN ADULT 0.4 MG/DL (0.2-1.0)
[2017-04-04] MEDS ORDERED: VANCOMYCIN HCL 1000 MG VIAL ONE (11:32)
[2017-04-04] MEDS ORDERED: GENTAMICIN SULFATE 80 MG/2 ML VIAL ONE (11:32)
[2017-04-04] MEDS ORDERED: ceFAZolin 2 GM PREMIX 50 ML ONE (11:32)
[2017-04-04] MEDS ORDERED: ROCURONIUM INJ 50 MG/5 ML SYRINGE IV PUSH ONE (12:00)
[2017-04-04] MEDS ORDERED: NORMOSOL R INJ 1,000 ML IV ONE (12:00)
[2017-04-04] MEDS ORDERED: LIDOCAINE HCL 1% PF 5 ML AMPULE OTHER ONE (12:00)
[2017-04-04] MEDS ORDERED: ONDANSETRON HCL 4 MG/2 ML VIAL IV PUSH ONE (12:00)
[2017-04-04] MEDS ORDERED: PROPOFOL 200 MG/20 ML AMP IV ONE (12:00)
[2017-04-04] MEDS ORDERED: NEOSTIGMINE 3 MG/3 ML SYR IV ONE (12:00)
[2017-04-04] MEDS ORDERED: PHENYLEPH/NS 1000 MCG/10 ML SYR IV ONE (12:00)
[2017-04-04] MEDS ORDERED: GLYCOPYRROLATE 1 MG/5 ML SYRINGE IV PUSH ONE (12:00)
[2017-04-04] MEDS ORDERED: STERILE WATER FOR INJECTION 20 ML VIAL ONE (12:00)
[2017-04-04] MEDS ORDERED: LACTATED RINGER'S 1000 ML IV PRN (12:15)
[2017-04-04] MEDS ORDERED: INSULIN HUMAN REGULAR 1,000 UNITS/10 ML VIAL SQ PRN (12:15)
[2017-04-04] MEDS ORDERED: SODIUM CHLORID 0.9% 500 ML IV PRN (12:15)
[2017-04-04] MEDS ORDERED: CHLORHEXIDINE GLUCONATE 2 % 1 PACK (2 CLOTHS) TOPICAL PRN (12:15)
[2017-04-04] MEDS ORDERED: METOPROLOL TARTRATE 25 MG TAB PO PRN (12:15)
[2017-04-04] MEDS ORDERED: POVIDONE IODINE 5% (ANTISEPSIS KIT) 4 APPLICATIONS EACH NARE PRN (12:15)
[2017-04-04] MEDS ORDERED: SODIUM CHLORIDE 0.9% FLUSH 5 ML FLUSH IVF PRN (14:00)
[2017-04-04] MEDS ORDERED: diphenhydrAMINE HCL 25 MG CAP PO PRN (14:00)
--- NOTE | 2017-04-04 14:03 | PD.OP ---
cc: Esteban Foote MD Operative Report Date of Surgery: Apr 04, 2017 Preoperative Diagnosis: Displaced left proximal humerus fracture Postoperative Diagnosis: Procedure: Removal of hardware, Open reduction internal fixation left proximal humerus Surgeon: Esteban Foote Analytics Analyst(s): TOMMY Briggs PA-C The surgical procedure was assisted by my physician campus administrative assistant. My P.A. presence was necessary throughout this case for the manipulation and positioning of the surgical extremity. My P.A. was assisting me throughout the duration of this procedure. The skill set of a physician campus administrative assistant was medically necessary to complete this procedure. During the surgical case the surgical corsetier was working at the back table and the physician campus administrative assistant was directly assisting me. Operation and Findings: Patient was seen and evaluated preoperatively. Patient had a injury approximately 3 weeks ago from an alcohol related fall. He sustained a left proximal humerus fracture treated with open reduction internal fixation by Dr. Jarquin. Patient subsequently was at home. He was intoxicated with alcohol again and had another injury resulting in displacement of left proximal humerus fracture with loosening of the hardware. I had a lengthy discussion with patient preoperatively regarding the need to stop drinking. He will likely continue to do himself harm if he continues drinking. The risks and benefits of surgical and nonsurgical options were discussed in detail and informed consent was obtained for surgery. Patient was brought to the operating room and placed on or table. IV sedation and GETA were administered by anesthesiologist. Antibiotics were given prior to incision. Operative arm and shoulder were prepped with alcohol followed by Hibiclens and draped usual sterile fashion. Timeout procedure was performed. Procedure began with a 8 inch incision over the anterior shoulder through the previous incision. Cephalic vein was identified. A deltopectoral approach was utilized. There was significant scar tissue around the incision from previous surgery The fracture was now visualized. Soft tissue was retracted. Cultures were obtained from the hematoma around the fracture.. Attention was now turned to removal of hardware. The previous plate was identified. The screws were identified. All the screws were now removed. The plate was now removed from the wound. The into the bone were now cleaned with curettes and rongeurs. At this point attention was turned towards reduction. Gentle traction was applied. The humeral shaft was reduced to the humeral head. Fracture was manipulated to achieve excellent reduction. Multiplanar fluoroscopy confirmed well aligned fracture. Multiple K wires were used to hold provisional fixation. A Synthes long proximal humerus plate was selected. Plate was provisionally held in place K wires. 3.5 cortical screws were used to compress plate to bone. Fluoroscopy confirmed appropriate plate placement and fracture reduction. Multiple locking screws were now placed in the humeral head. Screws were predrilled and premeasured for appropriate length. Care was taken not to penetrate the articular surface. Multiple Additional screws were placed in the humeral shaft to bypass the previous fractures. Final fluoroscopy revealed well aligned fracture with well-placed hardware. Wound was thoroughly irrigated. 10 cc of Biosphere bone graft putty was used to fill in the defect of the metaphysis. Fascia was closed with #1 Vicryl, subcutaneous tissues closed with 3-0 Vicryl, and skin was closed with enio. Sterile dressings were applied. Patient was placed into a sling. Patient was awakened and transferred to recovery in stable condition. Needle and sponge counts were correct. Esteban Foote MD Apr 04, 2017 14:03
[2017-04-04 14:20] LABS: HEMATOCRIT 23.6 % (39.0-51.0); REVIEW FLAG FINAL
[2017-04-04] MEDS ORDERED: DO NOT ADM ANY ANTICOAGULANT DRUGS PRN (14:22)
[2017-04-04] MEDS ORDERED: *morphine SULFATE 8 MG/ML PERIprocedure ONLY ONE ×2 (14:38→14:56)
[2017-04-04] MEDS ORDERED: *RESP: ALBUTEROL 2.5 MG/3 ML NEB (PRN) PERIprocedural Use ONLY NEB ONE (14:58)
[2017-04-04] MEDS ORDERED: HYDROmorphone HCL PF 1 MG/ML VIAL ONE (15:31)
--- NOTE | 2017-04-04 15:50 | RADRPT ---
EXAM DATE/TIME: 04/04/2017 13:43 [facility] COMPARISON: No previous studies available for comparison. INDICATIONS : Revision ORIF of left humerus fracture. MEDICAL HISTORY : Unobtainable. SURGICAL HISTORY : Unobtainable. ENCOUNTER: Subsequent ACUITY: 3 days PAIN SCORE: Non-responsive. LOCATION: Left humerus. FINDINGS: 6 images are recorded digitally operating room using C-arm during internal fixation of a proximal hum eral fracture. Lateral plate and multiple screws are in place. CONCLUSION: Intraoperative images. Zack Lees MD on April 04, 2017 at 15:48 Board Certified Radiologist. This report was verified electronically.
[2017-04-04] MEDS ORDERED: LABETALOL HCL 100 MG/20 ML VIAL ONE (16:01)
[2017-04-04] MEDS: ERGOCALCIFEROL (VIT D2) 50,000 UNIT CAP PO SCH (17:00)
[2017-04-04] MEDS: CALCIUM/VITAMIN D 250 MG/125 U TAB PO SCH (17:01)
[2017-04-04] MEDS: ceFAZolin 2 GM PREMIX 50 ML IV SCH (20:56)
[2017-04-04] MEDS: SODIUM CHLORIDE 0.9% FLUSH 5 ML FLUSH IVF SCH (20:56)
[2017-04-04] MEDS: VANCOMYCIN INJ 1,000 MG in SODIUM CHLOR 0.9% 250 ML INJ 250 ML IV SCH (23:05)
[2017-04-04] MEDS: MORPHINE SULFATE 4 MG/ML INJ IV PUSH PRN (23:05)
[2017-04-05] VITALS (7 sets, daily range): BP systolic 121–156; BP diastolic 77–91; PULSE 101–120; RESP 17–18; TEMP 97.7–99.6; O2SAT 98–99
[2017-04-05 00:56] LABS: REVIEW FLAG FINAL
[2017-04-05] MEDS: ceFAZolin 2 GM PREMIX 50 ML IV SCH ×3 (04:21→20:28)
[2017-04-05] MEDS: ACETAMINOPHEN/HYDROcodone 325 MG/10 MG TAB PO PRN ×5 (04:22→22:17)
[2017-04-05] MEDS: SODIUM CHLOR 0.9% 1000 ML INJ 1,000 ML IV SCH (04:42)
[2017-04-05] MEDS: MORPHINE SULFATE 4 MG/ML INJ IV PUSH PRN (06:07)
[2017-04-05] MEDS ORDERED: CALCTAB19 PO (06:54)
[2017-04-05] MEDS ORDERED: HYDR-3580 PO (06:54)
--- NOTE | 2017-04-05 07:05 | PD.ORT.PN ---
Subjective Subjective Remarks Pain controlled no new complaints. Patient is disheveled and sling is out of position Objective Vitals Vital Signs Date Time Temp Pulse Resp B/P (MAP) Pulse Ox O2 Delivery O2 Flow Rate FiO2 04/05/17 04:48 97.7 120 17 142/86 (104) 98 04/05/17 00:20 99.2 118 17 121/78 (92) 98 04/04/17 20:50 97.7 116 18 107/66 (80) 98 04/04/17 18:55 97.8 87 17 140/84 (102) 97 04/04/17 16:50 97.1 94 17 155/96 (115) 100 04/04/17 16:15 98.2 85 17 153/85 (107) 100 Nasal Cannula 2 04/04/17 16:00 100 16 163/100 (121) 99 Nasal Cannula 2 04/04/17 15:45 84 16 160/95 (116) 99 Nasal Cannula 3 04/04/17 15:30 84 16 156/98 (117) 100 Nasal Cannula 3 04/04/17 15:15 88 15 158/96 (116) 100 Nasal Cannula 3 04/04/17 15:00 86 16 156/96 (116) 98 Nasal Cannula 3 04/04/17 14:45 84 16 146/93 (110) 98 Nasal Cannula 3 04/04/17 14:29 97.6 84 16 151/91 (111) 100 Nasal Cannula 3 04/04/17 11:27 97.0 95 17 122/76 (91) 97 04/04/17 08:00 97.6 110 17 153/86 (108) 96 I/O 04/04/17 04/04/17 04/04/17 04/05/17 04/05/17 04/05/17 07:00 15:00 23:00 07:00 15:00 23:00 Intake Total 990 ml 2550 ml 410 ml 300 ml Output Total 600 ml 900 ml 200 ml 120 ml Balance 390 ml 1650 ml 210 ml 180 ml Intake Oral 0 ml 360 ml IV Total 990 ml 1250 ml 50 ml 300 ml Packed Cells 1300 ml Output Urine Total 600 ml 650 ml 200 ml 120 ml Estimated Blood Loss 250 ml # Voids 2 # Bowel Movements 0 1 0 Result Diagram: 04/05/17 0049 04/04/17 0821 Imaging Last 72 hours Impressions Shoulder X-Ray 04/04/17 0000 Signed Impressions: Service Date/Time: Tuesday, April 04, 2017 13:43 - CONCLUSION: Intraoperative images. Zack Lees MD Objective Remarks Left upper extremity: Clean dry dressings intact. Sling and swath repositioned. Intact sensation distally with full extension and flexion of all fingers Assessment & Plan Assessment and Plan Revision left proximal humerus fracture ORIF POD 1 Nonweightbearing left upper extremity Sling and swath at all times except for pendulum swings with OT Daily dressing changes beginning POD 2 Patient is noncompliant and chronic EtOH use Discharge planning Follow-up Dr. Foote or PA in 2 weeks Yadiel Real Jr. Apr 05, 2017 07:05
[2017-04-05 08:06] LABS: AUTOMATED NEUTROPHIL # 5.3 TH/MM3 (1.8-7.7); BASOPHIL % 0.4 % (0.0-2.0); EOSINOPHIL # 0.1 TH/MM3 (0-0.4); EOSINOPHIL % 1.2 % (0.0-4.0); HEMATOCRIT 26.7 % (39.0-51.0); HEMO FLAGS DIFF FINAL; LYMPH % 18.8 % (9.0-44.0); LYMPHOCYTE # 1.6 TH/MM3 (1.0-4.8); MEAN CELL VOLUME 90.1 FL (80.0-100.0); MEAN CORPUSCULAR HGB CONC 34.5 % (32.0-36.0); NEUT % 60.6 % (16.0-70.0); PLATELET COUNT 423 TH/MM3 (150-450); RED BLOOD COUNT 2.96 MIL/MM3 (4.50-5.90); RED CELL DISTRIBUTION WIDTH 17.4 % (11.6-17.2); WHITE BLOOD COUNT 8.7 TH/MM3 (4.0-11.0)
[2017-04-05] MEDS: PANTOPRAZOLE SOD 40 MG DELAYED RELEASE TAB PO SCH (08:12)
[2017-04-05] MEDS: THIAMINE HCL 100 MG TAB PO SCH (08:12)
[2017-04-05] MEDS: METOPROLOL TARTRATE 25 MG TAB PO SCH ×2 (08:12→20:28)
[2017-04-05] MEDS: levETIRAcetam 500 MG TAB PO SCH ×2 (08:12→20:28)
[2017-04-05] MEDS: MULTIVITAMINS/MINERALS THERAPEUTIC TAB PO SCH (08:12)
[2017-04-05] MEDS: CHOLECALCIFEROL (VIT D3) 1000 UNIT TAB PO SCH (08:12)
[2017-04-05] MEDS: CALCIUM/VITAMIN D 250 MG/125 U TAB PO SCH ×3 (08:12→17:58)
[2017-04-05] MEDS: DOCUSATE SODIUM 50 MG/SENNA 8.6 MG TAB PO SCH ×2 (08:13→20:28)
[2017-04-05] MEDS: POTASSIUM CHLORIDE 10 MEQ CONTROLLED RELEASE TAB PO SCH (08:13)
[2017-04-05] MEDS: FOLIC ACID 1 MG TAB PO SCH (08:13)
[2017-04-05] MEDS: SODIUM CHLORIDE 0.9% FLUSH 5 ML FLUSH IVF SCH ×2 (08:18→20:28)
[2017-04-05 08:27] LABS: BICARBONATE 25.6 MEQ/L (21.0-32.0); POTASSIUM 3.7 MEQ/L (3.5-5.1)
--- NOTE | 2017-04-05 09:50 | HHI.FPPN ---
Subjective Remarks Patient states that he is doing well this morning. He has no complaints. No chest pain, no shortness of breath, no fevers/ chills, no abdominal pain, no nausea or vomiting, no diarrhea constipation. He says that his pain is well controlled. Is having some weakness with standing. However, he is working with physical therapy at this time who recommended rehab for him. (Dora Montes De Oca MD R1) Objective Vitals Vital Signs Date Time Temp Pulse Resp B/P (MAP) Pulse Ox O2 Delivery O2 Flow Rate FiO2 04/05/17 09:06 98 21 04/05/17 08:00 98.4 110 17 144/91 (108) 98 04/05/17 04:48 97.7 120 17 142/86 (104) 98 04/05/17 00:20 99.2 118 17 121/78 (92) 98 04/04/17 20:50 97.7 116 18 107/66 (80) 98 04/04/17 18:55 97.8 87 17 140/84 (102) 97 04/04/17 16:50 97.1 94 17 155/96 (115) 100 04/04/17 16:15 98.2 85 17 153/85 (107) 100 Nasal Cannula 2 04/04/17 16:00 100 16 163/100 (121) 99 Nasal Cannula 2 04/04/17 15:45 84 16 160/95 (116) 99 Nasal Cannula 3 04/04/17 15:30 84 16 156/98 (117) 100 Nasal Cannula 3 04/04/17 15:15 88 15 158/96 (116) 100 Nasal Cannula 3 04/04/17 15:00 86 16 156/96 (116) 98 Nasal Cannula 3 04/04/17 14:45 84 16 146/93 (110) 98 Nasal Cannula 3 04/04/17 14:29 97.6 84 16 151/91 (111) 100 Nasal Cannula 3 04/04/17 11:27 97.0 95 17 122/76 (91) 97 I/O 04/04/17 04/04/17 04/04/17 04/05/17 04/05/17 04/05/17 07:00 15:00 23:00 07:00 15:00 23:00 Intake Total 990 ml 2550 ml 410 ml 660 ml Output Total 600 ml 900 ml 200 ml 620 ml Balance 390 ml 1650 ml 210 ml 40 ml Intake Oral 0 ml 360 ml 360 ml IV Total 990 ml 1250 ml 50 ml 300 ml Packed Cells 1300 ml Output Urine Total 600 ml 650 ml 200 ml 620 ml Estimated Blood Loss 250 ml # Voids 2 # Bowel Movements 0 1 0 1 (Dora Montes De Oca MD R1) Result Diagram: 04/05/17 0722 04/05/17 0722 Imaging Last Impressions Shoulder X-Ray 04/04/17 0000 Signed Impressions: Service Date/Time: Tuesday, April 04, 2017 13:43 - CONCLUSION: Intraoperative images. Zack Lees MD Elbow X-Ray 04/02/17 0000 Signed Impressions: Service Date/Time: Sunday, April 02, 2017 09:58 - CONCLUSION: Plate and screw fixation proximal humerus across comminuted fracture. Near-anatomic alignment. Positive joint effusion. Rg Nuñez MD Chest X-Ray 04/01/17 1318 Signed Impressions: Service Date/Time: Saturday, April 01, 2017 13:44 - CONCLUSION: No acute cardio pulmonary disease. Zack Osorio Jr., MD Objective Remarks GENERAL: Well-nourished, well-developed patient sitting at the edge of the bed, in no acute distress with a sling on his leg arm. Anterior left upper arm with enio intact. SKIN: Warm and dry. Slightly erythematous on abdomen and left shoulder, but greatly improved from yesterday. HEAD: Normocephalic. Atraumatic. EYES: No scleral icterus. No injection or drainage. NECK: Supple, trachea midline. No JVD or lymphadenopathy. CARDIOVASCULAR: Regular rate and rhythm without murmurs, gallops, or rubs. Soft diffuse wheezes improved. RESPIRATORY: Breath sounds equal bilaterally. No accessory muscle use. GASTROINTESTINAL: Abdomen soft, non-tender, nondistended. EXTREMITIES: No cyanosis, or edema. NEUROLOGICAL: Awake, alert. Non-focal. (Dora Montes De Oca MD R1) A/P Assessment and Plan 62M with seizure disorder and alcoholism and recent left shoulder ORIF who presents with displaced hardware in the left humerus. He was admitted with medical management of chronic conditions and pain control Discharge Planning Has been cleared by ortho. However, medically he still is being treated for electrolytes abnormalities and infection. PT has also recommended rehab, will have case management follow up. (Dora Montes De Oca MD R1) Attending Attestation Patient seen and examined. Case reviewed and discussed with the resident team. Agree with plan of care as discussed with me and documented in the resident note. (Tasha Nye MD) Problem List: (1) Humeral fracture ICD Codes: S42.309A - Unspecified fracture of shaft of humerus, unspecified arm , initial encounter for closed fracture Status: Acute Plan: Evaluated by Ortho, Dr. Estrada. We appreciate their assistance. Likely will need revision fixation of left humerus given his broken hardware, scheduled 04/04/17 Pain control with acetaminophen and [place]. * Revision left proximal humerus fracture ORIF POD 1 * Nonweightbearing left upper extremity * Sling and swath at all times except for pendulum swings with OT * Daily dressing changes beginning POD 2 * Patient is noncompliant and chronic EtOH use * Follow-up Dr. Foote or PA in 2 weeks * PT has recommended rehab. * added Vanc after surgery (2) Painful orthopaedic hardware ICD Codes: T84.84XA - Pain due to internal orthopedic prosthetic devices, implants and grafts, initial encounter Status: Acute Plan: As above (3) Cellulitis of abdominal wall ICD Codes: L03.311 - Cellulitis of abdominal wall Status: Acute Plan: Patient with cellulitis of abdominal wall and left shoulder, improving. Likely related to DVT prophylaxis entry sites given location and surgical site on left arm. Not febrile, not meeting sepsis criteria since admission * On Ancef 1g q8hr IV (04/03 - ) * Monitor for signs of worsening infection, fever (4) Frequent falls ICD Codes: R29.6 - Repeated falls Status: Chronic Plan: Chronic, likely related to alcoholism. No evidence of seizure prior to admission. Fall precautions PT evaluation (5) Alcohol abuse ICD Codes: F10.10 - Alcohol abuse, uncomplicated Status: Chronic Plan: Continue home dose Keppra CIWA protocol with MVI, EtOH level 161 on admission (6) Chronic hyponatremia ICD Codes: E87.1 - Hypo-osmolality and hyponatremia Status: Acute Plan: Monitor and replete as needed Likely related to poor nutrition given homelessness * Fluid restriction (7) Hypokalemia ICD Codes: E87.6 - Hypokalemia Status: Resolved (8) Hx of cardiac arrhythmia ICD Codes: Z86.79 - Personal history of other diseases of the circulatory system Status: Chronic Plan: Continue home dose metoprolol Monitor on telemetry (9) Fluids/Electrolytes/Nutrition/Prophylaxis Plan: Fluids: tolerating PO Electrolytes: monitor and replete as needed Nutrition: heart-healthy diet, NPO preoperatively DVT Prophylaxis: Early ambulation. SCDs. Hold pharmacologic intervention until post-operative, plan to start pharmacologic PPX 04/05 GI Prophylaxis: Protonix 40mg daily given alcoholism Disposition: possible discharge 1-2 days post-operatively, pending surgical clearance (Dora Montes De Oca MD R1) Dora Montes De Oca MD R1 Apr 05, 2017 09:50 Tasha Nye MD Apr 05, 2017 21:01
[2017-04-05] MEDS: VANCOMYCIN INJ 1,000 MG in SODIUM CHLOR 0.9% 250 ML INJ 250 ML IV SCH ×2 (10:38→22:17)
[2017-04-05 13:59] LABS: HEMATOCRIT 25.1 % (39.0-51.0); REVIEW FLAG FINAL
[2017-04-05 14:13] LABS: BICARBONATE 25.3 MEQ/L (21.0-32.0); POTASSIUM 3.4 MEQ/L (3.5-5.1)
[2017-04-05 14:42] LABS: CALCIUM-PROTEIN CORRECTED 8.2 MG/DL (8.5-10.1)
[2017-04-06 00:50] VITALS: BP 120/72; PULSE 95; RESP 17; TEMP 99.4; O2SAT 98
[2017-04-06] MEDS: ACETAMINOPHEN/HYDROcodone 325 MG/10 MG TAB PO PRN ×6 (02:17→22:42)
[2017-04-06] MEDS: ACETAMINOPHEN 325 MG TAB PO PRN (04:38)
[2017-04-06] MEDS: ceFAZolin 2 GM PREMIX 50 ML IV SCH ×3 (04:39→21:32)
--- NOTE | 2017-04-06 07:01 | PD.ORT.PN ---
Subjective Subjective Remarks s/p revision of left proximal humerus fx no changes. states doign well Objective Vitals Vital Signs Date Time Temp Pulse Resp B/P (MAP) Pulse Ox O2 Delivery O2 Flow Rate FiO2 04/06/17 00:50 99.4 95 17 120/72 (88) 98 04/05/17 19:05 98.7 101 17 156/90 (112) 04/05/17 16:10 98.7 101 17 156/90 (112) 98 04/05/17 12:00 99.6 105 18 134/77 (96) 99 04/05/17 09:06 98 21 04/05/17 08:00 98.4 110 17 144/91 (108) 98 I/O 04/05/17 04/05/17 04/05/17 04/06/17 04/06/17 04/06/17 07:00 15:00 23:00 07:00 15:00 23:00 Intake Total 660 ml 600 ml 410 ml 300 ml Output Total 620 ml Balance 40 ml 600 ml 410 ml 300 ml Intake Oral 360 ml 600 ml 360 ml IV Total 300 ml 50 ml 300 ml Output Urine Total 620 ml # Voids 2 2 # Bowel Movements 1 0 1 Result Diagram: 04/05/17 1253 04/05/17 1253 Imaging Last 72 hours Impressions Shoulder X-Ray 04/04/17 0000 Signed Impressions: Service Date/Time: Tuesday, April 04, 2017 13:43 - CONCLUSION: Intraoperative images. Zack Lees MD Objective Remarks Left upper extremity: Clean dry dressings intact. Sling and swath repositioned. Intact sensation distally with full extension and flexion of all fingers Assessment & Plan Assessment and Plan 1) Revision left proximal humerus fracture ORIF POD 2 Nonweightbearing left upper extremity Sling and swath at all times except for pendulum swings with OT Daily dressing changes beginning POD 2 Patient is noncompliant and chronic EtOH use Discharge planning will order portable xrays today to recheck shoulder Follow-up Dr. Foote or PA in 2 weeks Raul Diamond Apr 06, 2017 07:01
[2017-04-06 08:00] VITALS: BP 114/67; PULSE 95; RESP 18; TEMP 96.8; O2SAT 99
[2017-04-06] MEDS: SODIUM CHLORIDE 0.9% FLUSH 5 ML FLUSH IVF SCH ×2 (09:00→21:00)
[2017-04-06] MEDS: DOCUSATE SODIUM 50 MG/SENNA 8.6 MG TAB PO SCH ×2 (09:00→21:00)
[2017-04-06] MEDS: VANCOMYCIN INJ 1,000 MG in SODIUM CHLOR 0.9% 250 ML INJ 250 ML IV SCH (09:21)
[2017-04-06] MEDS: PANTOPRAZOLE SOD 40 MG DELAYED RELEASE TAB PO SCH (09:22)
[2017-04-06] MEDS: FOLIC ACID 1 MG TAB PO SCH (09:22)
[2017-04-06] MEDS: METOPROLOL TARTRATE 25 MG TAB PO SCH ×2 (09:22→21:33)
[2017-04-06] MEDS: POTASSIUM CHLORIDE 10 MEQ CONTROLLED RELEASE TAB PO SCH (09:22)
[2017-04-06] MEDS: CHOLECALCIFEROL (VIT D3) 1000 UNIT TAB PO SCH (09:22)
[2017-04-06] MEDS: THIAMINE HCL 100 MG TAB PO SCH (09:22)
[2017-04-06] MEDS: CALCIUM/VITAMIN D 250 MG/125 U TAB PO SCH ×3 (09:22→17:15)
[2017-04-06] MEDS: MULTIVITAMINS/MINERALS THERAPEUTIC TAB PO SCH (09:22)
[2017-04-06] MEDS: levETIRAcetam 500 MG TAB PO SCH ×2 (09:22→21:33)
[2017-04-06 10:06] LABS: PROTHROMBIN TIME - PATIENT 11.4 SEC (9.8-11.6)
[2017-04-06 10:22] LABS: BICARBONATE 27.2 MEQ/L (21.0-32.0); POTASSIUM 3.4 MEQ/L (3.5-5.1)
[2017-04-06 12:00] VITALS: BP 130/75; PULSE 96; RESP 18; TEMP 96.4; O2SAT 99
--- NOTE | 2017-04-06 12:13 | HHI.FPPN ---
Subjective Remarks Patient states that he is doing well this morning. He is having a little bit of nausea, but no vomiting. Is also having a little bit of pain in his left shoulder. No fevers or chills, no chest pain, no shortness of breath, no cough, no abdominal pain, no diarrhea or constipation. He is still having some swelling in his left hand. (Dora Montes De Oca MD R1) Objective Vitals Vital Signs Date Time Temp Pulse Resp B/P (MAP) Pulse Ox O2 Delivery O2 Flow Rate FiO2 04/06/17 08:00 96.8 95 18 114/67 (83) 99 04/06/17 00:50 99.4 95 17 120/72 (88) 98 04/05/17 19:05 98.7 101 17 156/90 (112) 04/05/17 16:10 98.7 101 17 156/90 (112) 98 I/O 04/05/17 04/05/17 04/05/17 04/06/17 04/06/17 04/06/17 07:00 15:00 23:00 07:00 15:00 23:00 Intake Total 660 ml 600 ml 410 ml 780 ml Output Total 620 ml 400 ml Balance 40 ml 600 ml 410 ml 380 ml Intake Oral 360 ml 600 ml 360 ml 480 ml IV Total 300 ml 50 ml 300 ml Output Urine Total 620 ml 400 ml # Voids 2 2 # Bowel Movements 1 0 1 0 (Dora Montes De Oca MD R1) Result Diagram: 04/05/17 1253 04/06/17 0849 Objective Remarks GENERAL: Well-nourished, well-developed patient sitting at the edge of the bed, in no acute distress with a sling on his leg arm. Anterior left upper arm with enio intact. SKIN: Warm and dry. Slightly erythematous on left shoulder. HEAD: Normocephalic. Atraumatic. EYES: No scleral icterus. No injection or drainage. NECK: Supple, trachea midline. No JVD or lymphadenopathy. CARDIOVASCULAR: Regular rate and rhythm without murmurs, gallops, or rubs. RESPIRATORY: Breath sounds equal bilaterally. No accessory muscle use. GASTROINTESTINAL: Abdomen soft, non-tender, nondistended. EXTREMITIES: No cyanosis, or edema. NEUROLOGICAL: Awake, alert. Non-focal. (oDra Montes De Oca MD R1) A/P Assessment and Plan 62M with seizure disorder and alcoholism and recent left shoulder ORIF who presents with displaced hardware in the left humerus. He was admitted with medical management of chronic conditions and pain control Discharge Planning Has been cleared by ortho. However, medically he still is being treated for electrolytes abnormalities and infection. PT has also recommended rehab, will have case management follow up. (Dora Montes De Oca MD R1) Attending Attestation Patient seen and examined. Case reviewed and discussed with the resident team. Agree with plan of care as discussed with me and documented in the resident note. (Tasha Nye MD) Problem List: (1) Humeral fracture ICD Codes: S42.309A - Unspecified fracture of shaft of humerus, unspecified arm , initial encounter for closed fracture Status: Acute Plan: Evaluated by Ortho, Dr. Estrada. We appreciate their assistance. Likely will need revision fixation of left humerus given his broken hardware, scheduled 04/04/17 Pain control with acetaminophen and Labadie. * Revision left proximal humerus fracture ORIF POD 1 * Nonweightbearing left upper extremity * Sling and swath at all times except for pendulum swings with OT * Daily dressing changes beginning POD 2 * Patient is noncompliant and chronic EtOH use * Follow-up Dr. Foote or [place] in 2 weeks * PT has recommended rehab. * added Vanc after surgery (2) Painful orthopaedic hardware ICD Codes: T84.84XA - Pain due to internal orthopedic prosthetic devices, implants and grafts, initial encounter Status: Acute Plan: As above (3) Cellulitis of abdominal wall ICD Codes: L03.311 - Cellulitis of abdominal wall Status: Acute Plan: Patient with cellulitis of abdominal wall and left shoulder, improving. Likely related to DVT prophylaxis entry sites given location and surgical site on left arm. Not febrile, not meeting sepsis criteria since admission * On Ancef 1g q8hr IV (04/03 - ) * Monitor for signs of worsening infection, fever (4) Frequent falls ICD Codes: R29.6 - Repeated falls Status: Chronic Plan: Chronic, likely related to alcoholism. No evidence of seizure prior to admission. Fall precautions PT evaluation (5) Alcohol abuse ICD Codes: F10.10 - Alcohol abuse, uncomplicated Status: Chronic Plan: Continue home dose Keppra CIWA protocol with MVI, EtOH level 161 on admission (6) Chronic hyponatremia ICD Codes: E87.1 - Hypo-osmolality and hyponatremia Status: Acute Plan: Monitor and replete as needed Likely related to poor nutrition given homelessness * Fluid restriction (7) Hypokalemia ICD Codes: E87.6 - Hypokalemia Status: Resolved (8) Hx of cardiac arrhythmia ICD Codes: Z86.79 - Personal history of other diseases of the circulatory system Status: Chronic Plan: Continue home dose metoprolol Monitor on telemetry (9) Fluids/Electrolytes/Nutrition/Prophylaxis Plan: Fluids: tolerating PO Electrolytes: monitor and replete as needed Nutrition: heart-healthy diet, NPO preoperatively DVT Prophylaxis: Early ambulation. SCDs. Hold pharmacologic intervention until post-operative, plan to start pharmacologic PPX 04/05 GI Prophylaxis: Protonix 40mg daily given alcoholism Disposition: possible discharge 1-2 days post-operatively, pending surgical clearance (Dora Montes De Oca MD R1) Dora Montes De Oca MD R1 Apr 06, 2017 12:13 Tasha Nye MD Apr 06, 2017 15:24
--- NOTE | 2017-04-06 14:23 | RADRPT ---
EXAM DATE/TIME: 04/06/2017 13:39 [facility] COMPARISON: SHOULDER LEFT LTD (2VWS), April 01, 2017, 13:48. INDICATIONS : Evaluate left proximal humerus fracture. MEDICAL HISTORY : None. SURGICAL HISTORY : ORIF left proximal humerus. ENCOUNTER: Subsequent ACUITY: 4 - 6 days PAIN SCORE: 9/10 LOCATION: Left upper extremity FINDINGS: Two-view examination of the left shoulder status post revision internal fixation. A long shaft humer al plate has been placed and there is mu-ism of alignment of the femoral head with the shaft. M ultiple areas of heterotopic ossification present laterally and a regular shape fragment medially a s imilar appearance to the preoperative exam. On the transscapular Y. view, the humeral head is projec andrea posterior to the glenoid and on the frontal view, the humeral head appears slightly inferolateral . Healed posterolateral left 7th 8th and 9th rib fractures stable. CONCLUSION: 1. Interval revision internal fixation of the proximal humerus. 2. Findings suggest posterior dislocation at the glenohumeral joint. Zack Lees MD on April 06, 2017 at 14:19 Board Certified Radiologist. This report was verified electronically.
[2017-04-06] MEDS ORDERED: POTASSIUM CHLORIDE 20 MEQ CONTROLLED RELEASE TAB PO ONE (14:30)
[2017-04-06 15:00] VITALS: BP 126/74; PULSE 96; RESP 18; TEMP 97.1; O2SAT 99
[2017-04-06 16:55] LABS: AUTOMATED NEUTROPHIL # 3.5 TH/MM3 (1.8-7.7); BASOPHIL % 0.5 % (0.0-2.0); EOSINOPHIL # 0.2 TH/MM3 (0-0.4); EOSINOPHIL % 2.8 % (0.0-4.0); HEMATOCRIT 26.5 % (39.0-51.0); HEMO FLAGS DIFF FINAL; LYMPH % 25.6 % (9.0-44.0); LYMPHOCYTE # 1.9 TH/MM3 (1.0-4.8); MEAN CELL VOLUME 91.8 FL (80.0-100.0); MEAN CORPUSCULAR HEMOGLOBIN 31.7 PG (27.0-34.0); MEAN CORPUSCULAR HGB CONC 34.5 % (32.0-36.0); NEUT % 48.1 % (16.0-70.0); PLATELET COUNT 382 TH/MM3 (150-450); RED BLOOD COUNT 2.89 MIL/MM3 (4.50-5.90); RED CELL DISTRIBUTION WIDTH 16.8 % (11.6-17.2); WHITE BLOOD COUNT 7.3 TH/MM3 (4.0-11.0)
[2017-04-06 19:34] VITALS: BP 127/75; PULSE 97; RESP 19; TEMP 97.5; O2SAT 96
[2017-04-06 23:55] VITALS: BP 128/68; PULSE 94; RESP 18; TEMP 97.3; O2SAT 96
[2017-04-07] MEDS: ACETAMINOPHEN/HYDROcodone 325 MG/10 MG TAB PO PRN ×5 (03:09→20:12)
[2017-04-07] MEDS: ceFAZolin 2 GM PREMIX 50 ML IV SCH ×2 (04:45→13:00)
[2017-04-07 07:15] LABS: AUTOMATED NEUTROPHIL # 2.6 TH/MM3 (1.8-7.7); BASOPHIL % 0.7 % (0.0-2.0); EOSINOPHIL # 0.2 TH/MM3 (0-0.4); EOSINOPHIL % 3.6 % (0.0-4.0); HEMATOCRIT 27.3 % (39.0-51.0); HEMO FLAGS DIFF FINAL; LYMPH % 32.1 % (9.0-44.0); LYMPHOCYTE # 2.1 TH/MM3 (1.0-4.8); MEAN CELL VOLUME 91.9 FL (80.0-100.0); MEAN CORPUSCULAR HEMOGLOBIN 31.7 PG (27.0-34.0); MEAN CORPUSCULAR HGB CONC 34.5 % (32.0-36.0); MONO % 23.6 % (0.0-8.0); PLATELET COUNT 402 TH/MM3 (150-450); RED BLOOD COUNT 2.97 MIL/MM3 (4.50-5.90); RED CELL DISTRIBUTION WIDTH 16.7 % (11.6-17.2); WHITE BLOOD COUNT 6.6 TH/MM3 (4.0-11.0)
[2017-04-07] MEDS: levETIRAcetam 500 MG TAB PO SCH ×2 (07:36→21:52)
[2017-04-07] MEDS: PANTOPRAZOLE SOD 40 MG DELAYED RELEASE TAB PO SCH (07:36)
[2017-04-07 07:37] VITALS: BP 122/69; PULSE 90; RESP 18; TEMP 97; O2SAT 95
[2017-04-07] MEDS: METOPROLOL TARTRATE 25 MG TAB PO SCH ×2 (07:37→21:52)
[2017-04-07] MEDS: POTASSIUM CHLORIDE 10 MEQ CONTROLLED RELEASE TAB PO SCH (07:37)
[2017-04-07] MEDS: CHOLECALCIFEROL (VIT D3) 1000 UNIT TAB PO SCH (07:37)
[2017-04-07] MEDS: THIAMINE HCL 100 MG TAB PO SCH (07:37)
[2017-04-07] MEDS: CALCIUM/VITAMIN D 250 MG/125 U TAB PO SCH ×3 (07:37→15:59)
[2017-04-07] MEDS: DOCUSATE SODIUM 50 MG/SENNA 8.6 MG TAB PO SCH ×2 (07:38→21:00)
[2017-04-07] MEDS: SODIUM CHLORIDE 0.9% FLUSH 5 ML FLUSH IVF SCH ×2 (07:38→21:00)
[2017-04-07 07:48] LABS: BICARBONATE 29.2 MEQ/L (21.0-32.0); POTASSIUM 3.9 MEQ/L (3.5-5.1)
--- NOTE | 2017-04-07 08:55 | HHI.FPPN ---
Subjective Remarks Patient was seen and examined this morning. He notes he is still unbalanced on his feet. He notes swelling of the LEs x 2 days. He denies fevers, chills. Pain is well controlled with current regimen. (Eunice Martinez MD R2) Objective Vitals Vital Signs Date Time Temp Pulse Resp B/P (MAP) Pulse Ox O2 Delivery O2 Flow Rate FiO2 04/07/17 07:37 97.0 90 18 122/69 (86) 95 04/06/17 23:55 97.3 94 18 128/68 (88) 96 04/06/17 19:34 97.5 97 19 127/75 (92) 96 04/06/17 16:42 18 04/06/17 15:00 97.1 96 18 126/74 (91) 99 04/06/17 12:00 96.4 96 18 130/75 (93) 99 I/O 04/06/17 04/06/17 04/06/17 04/07/17 04/07/17 04/07/17 07:00 15:00 23:00 07:00 15:00 23:00 Intake Total 780 ml 300 ml 360 ml 530 ml Output Total 400 ml 900 ml Balance 380 ml 300 ml 360 ml -370 ml Intake Oral 480 ml 360 ml 480 ml IV Total 300 ml 300 ml 50 ml Output Urine Total 400 ml 900 ml # Voids 3 1 # Bowel Movements 0 0 0 (Eunice Martinez MD R2) Result Diagram: 04/07/17 0649 04/07/17 0649 Imaging Last Impressions Shoulder X-Ray 04/06/17 0000 Signed Impressions: Service Date/Time: March 13:39 - CONCLUSION: 1. Interval revision internal fixation of the proximal humerus. 2. Findings suggest posterior dislocation at the glenohumeral joint. Zack Lees MD Elbow X-Ray 04/02/17 0000 Signed Impressions: Service Date/Time: Sunday, April 02, 2017 09:58 - CONCLUSION: Plate and screw fixation proximal humerus across comminuted fracture. Near-anatomic alignment. Positive joint effusion. Rg Nuñez MD Chest X-Ray 04/01/17 1318 Signed Impressions: Service Date/Time: Saturday, April 01, 2017 13:44 - CONCLUSION: No acute cardio pulmonary disease. Zack Osorio Jr., MD Objective Remarks GENERAL: Well-nourished, well-developed patient sitting at the edge of the bed, in no acute distress with a sling on his leg arm. Anterior left upper arm with enio intact. SKIN: Warm and dry. Slightly erythematous on left shoulder but this is improving. Patient is noted to have small skin abrasion over the right distal Achilles tendon. HEAD: Normocephalic. Atraumatic. EYES: No scleral icterus. No injection or drainage. NECK: Supple, trachea midline. No JVD or lymphadenopathy. CARDIOVASCULAR: Regular rate and rhythm without murmurs, gallops, or rubs. RESPIRATORY: Breath sounds equal bilaterally. No wheezes or rhonchi. No accessory muscle use. GASTROINTESTINAL: Abdomen soft, non-tender, nondistended. EXTREMITIES: No cyanosis. He does have 2+ edema to the knees bilaterally, nontender, pitting. Pulses are 2+ distally in the UEs and LEs bilaterally. NEUROLOGICAL: Awake, alert. Non-focal. He is noted to ambulate without difficulty from the bathroom to the bed, without use of any assistive devices. Medications and IVs Inpatient Medications Acetaminophen (Tylenol) 650 mg Q4H PRN PO TEMP > 100.4, PAIN 1-2 Last administered on 04/06/17 04:38; Start 04/01/17 at 15:30 Acetaminophen/ Hydrocodone Bitart ([place] 5-325 Mg) 1 tab Q4H PRN PO PAIN SCALE 3 TO 5; Start 04/01/17 at 17:30 Acetaminophen/ Hydrocodone Bitart ([place] 10-325 Mg) 1 tab Q4H PRN PO PAIN SCALE 6 TO 10 Last administered on 04/07/17 07:38; Start 04/01/17 at 17:30 Bisacodyl (Dulcolax Supp) 10 mg DAILY PRN RECTAL SEVERE CONSITIPATION; Start 04/01/17 at 15:30 Calcium/Vitamin D (Oscal-D 250-125) 250 mg TID PO Last administered on 07:37; Start 04/04/17 at 18:00 Cefazolin Sodium 1000 mg/Sodium Chloride 100 ml @ 200 mls/hr Q8H IV Last administered on 04/04/17 04:12; Start 04/02/17 at 12:00; Stop 04/04/17 at 14 :09; Status DC Cefazolin Sodium/ Dextrose 50 ml @ 100 mls/hr Q8H IV Last administered on 04:45; Start 04/04/17 at 21:00; Stop 04/07/17 at 13:29 Chlorhexidine Gluconate (Chlorhexidine 2% Cloth) 3 pack CAN TOP SETTER PRN TOPICAL SEE LABEL COMMENTS; Start 04/04/17 at 12:15; Stop 04/07/17 at 12:14 Cholecalciferol (Vitamin D3) 1,000 units DAILY PO Last administered on 07:37; Start 04/05/17 at 09:00 Diphenhydramine HCl (Benadryl) 25 mg Q6H PRN PO ITCHING; Start 04/04/17 at 14: 00 Enalaprilat (Vasotec Inj) 1.25 mg Q6H PRN IV PUSH SBP> OR = 180, DBP> OR = 100 ; Start 04/01/17 at 23:00 Ergocalciferol (Drisdol) 50,000 units Q7D PO Last administered on 04/04/17 17 :00; Start 04/04/17 at 16:00 Flumazenil (Romazicon Inj) 0.2 mg Q1M PRN IV PUSH SEE LABEL COMMENTS; Start at 17:30 Folic Acid (Folate) 1 mg DAILY PO Last administered on 04/06/17 09:22; Start 04/01/17 at 17:30; Stop 04/06/17 at 17:29; Status DC Insulin Human Regular (NovoLIN R INJ) See Protocol Table ... CAN TOP SETTER PRN SQ SEE PROTOCOL TABLE; Start 04/04/17 at 12:15; Stop 04/04/17 at 15:18; Status DC IV Flush (NS Flush) 2 ml BID IVF Last administered on 04/07/17 07:38; Start 04/04/17 at 21:00 Lactated Ringer's 1,000 ml @ 30 mls/hr Q24H PRN IV SEE LABEL COMMENTS; Start 04/04/17 at 12:15; Stop 04/04/17 at 15:20; Status DC Lactulose (Lactulose Liq) 30 ml DAILY PRN PO SEVERE CONSITIPATION Last administered on 04/05/17 08:12; Start 04/01/17 at 15:30 Levetriacetam (Keppra) 500 mg BID PO Last administered on 04/07/17 07:36; Start 04/01/17 at 21:00 Lorazepam (Ativan Inj) 2 mg Q15M PRN IV PUSH CIWA > 20; Start 04/01/17 at 17: 30 Lorazepam (Ativan) 2 mg Q2H PRN PO CIWA 11-14; Start 04/01/17 at 17:30 Magnesium Hydroxide (Milk Of Magnesia Liq) 30 ml Q12H PRN PO Mild constipation ; Start 04/01/17 at 15:30 Metoprolol Tartrate (Lopressor) 25 mg CAN TOP SETTER PRN PO SEE LABEL COMMENTS; Start 04/04/17 at 12:15; Stop 04/04/17 at 15:20; Status DC Miscellaneous Information ALL NURSING DEPARTME... UNSCH PRN .XX SEE LABEL COMMENTS; Start 04/04/17 at 14:22; Stop 04/05/17 at 14:21; Status DC Morphine Sulfate (Morphine Inj) 2 mg Q3H PRN IV PUSH BREAKTHROUGH PAIN Last administered on 04/05/17 06:07; Start 04/01/17 at 17:30 Multivitamins/ Minerals Therapeutic (Theragran M Tab) 1 tab DAILY PO Last administered on 04/06/17 09:22; Start 04/01/17 at 17:30; Stop 04/06/17 at 17 :29; Status DC Naloxone HCl (Narcan Inj) 0.4 mg UNSCH PRN IV PUSH SEE LABEL COMMENTS; Start 04/01/17 at 17:30 Ondansetron HCl (Zofran Inj) 4 mg Q6H PRN IVP NAUSEA OR VOMITING Last administered on 04/02/17 08:30; Start 04/01/17 at 15:30 Pantoprazole Sodium (Protonix) 40 mg DAILY PO Last administered on 04/07/17 07:36; Start 04/01/17 at 17:30 Potassium Chloride (KCl) 20 meq ONCE ONCE PO Last administered on 04/06/17 15:41; Start 04/06/17 at 14:30; Stop 04/06/17 at 14:31; Status DC Povidone Iodine (Betadine 5% Antisepsis Kit) 1 applic CAN TOP SETTER PRN EACH NARE SEE LABEL COMMENTS; Start 04/04/17 at 12:15; Stop 04/07/17 at 12:14 Senna/Docusate Sodium ([place]-Colace) 1 tab BID PO Last administered on 08:13; Start 04/01/17 at 21:00 Sennosides (Senokot) 17.2 mg Q12H PRN PO Moderate constipation; Start at 15:30 Sodium Chloride 500 ml @ 30 mls/hr [id number] PRN IV SEE LABEL COMMENTS; Start at 12:15; Stop 04/04/17 at 15:20; Status DC Sodium Chloride (NS Flush) 2 ml BID IV FLUSH Last administered on 04/03/17 20 :34; Start 04/01/17 at 21:00; Stop 04/04/17 at 15:21; Status DC Thiamine HCl (Vitamin B1) 100 mg DAILY PO Last administered on 04/07/17 07:37 ; Start 04/01/17 at 17:30 Vancomycin HCl 1000 mg/Sodium Chloride 250 ml @ 250 mls/hr Q12H IV Last administered on 04/06/17 09:21; Start 04/04/17 at 22:00; Stop 04/06/17 at 10 :59; Status DC (Eunice Martinez MD R2) Urinary Catheter: No (Eunice Martinez MD R2) Vascular Central Line Catheter: No (Eunice Martinez MD R2) A/P Assessment and Plan 62M with seizure disorder and alcoholism and recent left shoulder ORIF who presents with displaced hardware in the left humerus. He was admitted with medical management of chronic conditions and pain control. He remains in the hospital due to PT/OT recommending Discharge Planning Has been cleared by ortho. However, medically he still is being treated for electrolytes abnormalities and infection. PT has also recommended rehab, will have case management follow up. (Eunice Martinez MD R2) Attending Attestation Patient seen and examined. Case reviewed and discussed with the resident team. Agree with plan of care as discussed with me and documented in the resident note. (Tasha Nye MD) Problem List: (1) Humeral fracture ICD Codes: S42.309A - Unspecified fracture of shaft of humerus, unspecified arm , initial encounter for closed fracture Status: Acute Plan: Evaluated by Ortho, Dr. Estrada. We appreciate their assistance. Likely will need revision fixation of left humerus given his broken hardware, scheduled 04/04/17 Pain control with acetaminophen and [place]. * Revision left proximal humerus fracture ORIF POD 1 * Nonweightbearing left upper extremity * Sling and swath at all times except for pendulum swings with OT * Daily dressing changes beginning POD 2 * Patient is noncompliant and chronic EtOH use * Follow-up Dr. Foote or [place] in 2 weeks * PT has recommended rehab. (2) Painful orthopaedic hardware ICD Codes: T84.84XA - Pain due to internal orthopedic prosthetic devices, implants and grafts, initial encounter Status: Acute Plan: As above (3) Cellulitis of abdominal wall ICD Codes: L03.311 - Cellulitis of abdominal wall Status: Acute Plan: Patient with cellulitis of abdominal wall and left shoulder, improving. Likely related to DVT prophylaxis entry sites given location and surgical site on left arm. Not febrile, not meeting sepsis criteria since admission. * On Ancef 1g q8hr IV (04/03 - ) * Vancomycin (04/04 - 04/06) * Monitor for signs of worsening infection, fever (4) Frequent falls ICD Codes: R29.6 - Repeated falls Status: Chronic Plan: Chronic, likely related to alcoholism. No evidence of seizure prior to admission. Fall precautions PT evaluation (5) Alcohol abuse ICD Codes: F10.10 - Alcohol abuse, uncomplicated Status: Chronic Plan: Continue home dose Keppra CIWA protocol with MVI, EtOH level 161 on admission (6) Chronic hyponatremia ICD Codes: E87.1 - Hypo-osmolality and hyponatremia Status: Acute Plan: Monitor and replete as needed Likely related to poor nutrition given homelessness * Fluid restriction (7) Hypokalemia ICD Codes: E87.6 - Hypokalemia Status: Resolved (8) Hx of cardiac arrhythmia ICD Codes: Z86.79 - Personal history of other diseases of the circulatory system Status: Chronic Plan: Continue home dose metoprolol Monitor on telemetry (9) Fluids/Electrolytes/Nutrition/Prophylaxis Plan: Fluids: tolerating PO, fluid restrict 1500cc daily Electrolytes: monitor and replete as needed Nutrition: heart-healthy diet, DVT Prophylaxis: Early ambulation. SCDs. Hold pharmacologic intervention until post-operative, plan to start pharmacologic PPX 04/05 GI Prophylaxis: Protonix 40mg daily given alcoholism Disposition: possible discharge 1-2 days post-operatively, pending surgical clearance (Eunice Martinez MD R2) Eunice Martinez MD R2 Apr 07, 2017 08:55 Tasha Nye MD Apr 07, 2017 12:55
[2017-04-07 11:43] VITALS: BP 130/72; PULSE 90; RESP 18; TEMP 97.5; O2SAT 97
--- NOTE | 2017-04-07 13:26 | PD.ORT.PN ---
Subjective Subjective Remarks Pain controlled no new complaints. Patient is disheveled and sling is out of position Objective Vitals Vital Signs Date Time Temp Pulse Resp B/P (MAP) Pulse Ox O2 Delivery O2 Flow Rate FiO2 04/07/17 12:46 18 04/07/17 11:43 97.5 90 18 130/72 (91) 97 04/07/17 07:37 97.0 90 18 122/69 (86) 95 04/06/17 23:55 97.3 94 18 128/68 (88) 96 04/06/17 19:34 97.5 97 19 127/75 (92) 96 04/06/17 15:00 97.1 96 18 126/74 (91) 99 I/O 04/06/17 04/06/17 04/06/17 04/07/17 04/07/17 04/07/17 07:00 15:00 23:00 07:00 15:00 23:00 Intake Total 780 ml 300 ml 360 ml 530 ml Output Total 400 ml 900 ml Balance 380 ml 300 ml 360 ml -370 ml Intake Oral 480 ml 360 ml 480 ml IV Total 300 ml 300 ml 50 ml Output Urine Total 400 ml 900 ml # Voids 3 1 # Bowel Movements 0 0 0 Result Diagram: 04/07/17 0649 04/07/17 0649 Imaging Last 72 hours Impressions Shoulder X-Ray 04/06/17 0000 Signed Impressions: Service Date/Time: March 13:39 - CONCLUSION: 1. Interval revision internal fixation of the proximal humerus. 2. Findings suggest posterior dislocation at the glenohumeral joint. Zack Lees MD Last 72 hours Impressions Shoulder X-Ray 04/04/17 0000 Signed Impressions: Service Date/Time: Tuesday, April 04, 2017 13:43 - CONCLUSION: Intraoperative images. Zack Lees MD Objective Remarks Left upper extremity: Clean dry dressings intact. Sling and swath repositioned. Intact sensation distally with full extension and flexion of all fingers Assessment & Plan Assessment and Plan 1) Revision left proximal humerus fracture ORIF POD 3 Nonweightbearing left upper extremity Sling and swath at all times except for pendulum swings with OT Daily dressing changes Patient is noncompliant and chronic EtOH use Discharge planning Follow-up Dr. Foote or [facility] in 2 weeks Yadiel Real Jr. Apr 07, 2017 13:26
[2017-04-07 16:00] VITALS: BP 140/79; PULSE 95; RESP 18; TEMP 97.3; O2SAT 100
[2017-04-07 19:23] VITALS: BP 114/73; PULSE 102; RESP 18; TEMP 96.7; O2SAT 99
[2017-04-07 23:43] VITALS: BP 115/64; PULSE 95; RESP 18; TEMP 98.2; O2SAT 96
[2017-04-08] MEDS: ACETAMINOPHEN/HYDROcodone 325 MG/10 MG TAB PO PRN ×6 (00:24→21:33)
--- NOTE | 2017-04-08 06:47 | PD.ORT.PN ---
Subjective Subjective Remarks Pain controlled no new complaints. Patient is disheveled and sling is out of position Objective Vitals Vital Signs Date Time Temp Pulse Resp B/P (MAP) Pulse Ox O2 Delivery O2 Flow Rate FiO2 04/07/17 23:43 98.2 95 18 115/64 (81) 96 04/07/17 19:23 96.7 102 18 114/73 (87) 99 04/07/17 17:01 18 04/07/17 16:00 97.3 95 18 140/79 (99) 100 04/07/17 11:43 97.5 90 18 130/72 (91) 97 04/07/17 07:37 97.0 90 18 122/69 (86) 95 I/O 04/07/17 04/07/17 04/07/17 04/08/17 04/08/17 04/08/17 07:00 15:00 23:00 07:00 15:00 23:00 Intake Total 530 ml 1010 ml 360 ml 120 ml Output Total 900 ml 200 ml Balance -370 ml 1010 ml 360 ml -80 ml Intake Oral 480 ml 960 ml 360 ml 120 ml IV Total 50 ml 50 ml Output Urine Total 900 ml 200 ml # Voids 1 5 5 6 # Bowel Movements 0 0 0 0 Result Diagram: 04/07/17 0649 04/07/17 0649 Imaging Last 72 hours Impressions Shoulder X-Ray 04/06/17 0000 Signed Impressions: Service Date/Time: March 13:39 - CONCLUSION: 1. Interval revision internal fixation of the proximal humerus. 2. Findings suggest posterior dislocation at the glenohumeral joint. Zack Lees MD Last 72 hours Impressions Shoulder X-Ray 04/04/17 0000 Signed Impressions: Service Date/Time: Tuesday, April 04, 2017 13:43 - CONCLUSION: Intraoperative images. Zack Lees MD Objective Remarks Left upper extremity: Clean dry dressings intact. Sling and swath repositioned. Intact sensation distally with full extension and flexion of all fingers Assessment & Plan Assessment and Plan 1) Revision left proximal humerus fracture ORIF POD 4 Nonweightbearing left upper extremity Sling and swath at all times except for pendulum swings with OT Daily dressing changes Patient is noncompliant and chronic EtOH use Discharge planning - ortho cleared. Long discussion concerning his proximal humerus fracture and noncompliance. He is to continue to remain in sling and swath at all times. He has had one revision due to noncompliance. He was to fall or use the arm he will causes hardware failure. Follow-up Dr. Foote or [facility] in 2 weeks Yadiel Real Jr. Apr 08, 2017 06:47
--- NOTE | 2017-04-08 06:48 | HHI.FF ---
Face to Face Verification Diagnosis: (1) Humeral fracture Nursing RN: 3 days/week x 2 weeks Nursing: Dressing changes Dressing Changes: Xeroform, Coverderm/Primapore I have seen patient Chencho Morales on 04/08/17. My clinical findings support the need for the requested home health care services because: Limited ability to care for self I certify that my clinical findings support that this patient is homebound because: Unsteady gait/balance Yadiel Real Jr. Apr 08, 2017 06:48
[2017-04-08 07:30] LABS: AUTOMATED NEUTROPHIL # 1.9 TH/MM3 (1.8-7.7); BASOPHIL % 0.7 % (0.0-2.0); EOSINOPHIL # 0.2 TH/MM3 (0-0.4); EOSINOPHIL % 3.9 % (0.0-4.0); HEMATOCRIT 26.1 % (39.0-51.0); HEMO FLAGS DIFF FINAL; LYMPH % 31.9 % (9.0-44.0); LYMPHOCYTE # 1.7 TH/MM3 (1.0-4.8); MEAN CELL VOLUME 92.7 FL (80.0-100.0); MEAN CORPUSCULAR HEMOGLOBIN 30.6 PG (27.0-34.0); MONO % 26.8 % (0.0-8.0); NEUT % 36.7 % (16.0-70.0); PLATELET COUNT 369 TH/MM3 (150-450); RED BLOOD COUNT 2.81 MIL/MM3 (4.50-5.90); RED CELL DISTRIBUTION WIDTH 16.6 % (11.6-17.2); WHITE BLOOD COUNT 5.3 TH/MM3 (4.0-11.0)
[2017-04-08 07:54] LABS: BICARBONATE 30.3 MEQ/L (21.0-32.0); POTASSIUM 3.9 MEQ/L (3.5-5.1)
--- NOTE | 2017-04-08 08:43 | HHI.FPPN ---
Subjective Remarks Pt. seen, examined and discussed wit Dr. Montes De Oca. This is a 62 yo male s/p left shoulder orthopedic procedure who is sitting at the side of the bed eating breakfast. He complains of 8:10 pain in his left shoulder which he attributes to the efforts to keep his arm in the sling with his hand somewhat elevated. Denies chest pain, SOB, nausea, food intolerance. Had a BM this a.m. Notes some swelling in his feet. Objective Vitals Vital Signs Date Time Temp Pulse Resp B/P (MAP) Pulse Ox O2 Delivery O2 Flow Rate FiO2 04/07/17 23:43 98.2 95 18 115/64 (81) 96 04/07/17 19:23 96.7 102 18 114/73 (87) 99 04/07/17 17:01 18 04/07/17 16:00 97.3 95 18 140/79 (99) 100 04/07/17 11:43 97.5 90 18 130/72 (91) 97 I/O 04/07/17 04/07/17 04/07/17 04/08/17 04/08/17 04/08/17 07:00 15:00 23:00 07:00 15:00 23:00 Intake Total 530 ml 1010 ml 360 ml 120 ml Output Total 900 ml 200 ml Balance -370 ml 1010 ml 360 ml -80 ml Intake Oral 480 ml 960 ml 360 ml 120 ml IV Total 50 ml 50 ml Output Urine Total 900 ml 200 ml # Voids 1 5 5 6 # Bowel Movements 0 0 0 0 Result Diagram: 04/08/17 0652 04/08/17 0652 Objective Remarks GENERAL: Well-nourished, well-developed patient sitting at the edge of the bed, in no acute distress with a sling on his leg arm. Anterior left upper arm with enio intact. SKIN: Warm and dry. Slightly erythematous on left shoulder but this is improving. Dressing intact. HEAD: Normocephalic. Atraumatic. EYES: No scleral icterus. No injection or drainage. NECK: Supple, trachea midline. No JVD or lymphadenopathy. CARDIOVASCULAR: Regular rate and rhythm without murmurs, gallops, or rubs. RESPIRATORY: Breath sounds equal bilaterally. No wheezes or rhonchi. No accessory muscle use. GASTROINTESTINAL: Abdomen soft, non-tender, nondistended. EXTREMITIES: No cyanosis. He does have 2+ edema to mid-lara bilaterally, nontender, pitting. Pulses are 2+ distally in the UEs and LEs bilaterally. Moves fingers of left hand fully; hand remains swollen. NEUROLOGICAL: Awake, alert. Non-focal. He is noted to ambulate without difficulty from the bathroom to the bed, without use of any assistive devices. A/P Assessment and Plan 62M with seizure disorder and alcoholism and recent left shoulder ORIF who presents with displaced hardware in the left humerus. He was admitted with medical management of chronic conditions and pain control. He remains in the hospital due to PT/OT recommending Discharge Planning Has been cleared by ortho. He is no longer on antibiotics. His low sodium would appear to be chronic. PT has also recommended rehab, will have case management follow up. Problem List: (1) Humeral fracture ICD Codes: S42.309A - Unspecified fracture of shaft of humerus, unspecified arm , initial encounter for closed fracture Status: Acute Plan: Evaluated by Ortho, Dr. Estrada. * Revision left proximal humerus fracture ORIF POD 4 * Nonweightbearing left upper extremity * Sling and swath at all times except for pendulum swings with OT * Daily dressing changes * Patient is noncompliant and chronic EtOH use * Follow-up Dr. Foote or PA in 2 weeks after discharge * PT has recommended rehab. (2) Painful orthopaedic hardware ICD Codes: T84.84XA - Pain due to internal orthopedic prosthetic devices, implants and grafts, initial encounter Status: Resolved Plan: As above (3) Cellulitis of abdominal wall ICD Codes: L03.311 - Cellulitis of abdominal wall Status: Resolved Plan: Patient with cellulitis of abdominal wall and left shoulder, resolved. Likely related to DVT prophylaxis entry sites given location and surgical site on left arm. Not febrile, not meeting sepsis criteria since admission. * Monitor for signs of infection, fever (4) Frequent falls ICD Codes: R29.6 - Repeated falls Status: Chronic Plan: Chronic, likely related to alcoholism. No evidence of seizure prior to admission. Fall precautions PT evaluation (5) Alcohol abuse ICD Codes: F10.10 - Alcohol abuse, uncomplicated Status: Chronic Plan: Continue home dose Keppra CIWA protocol with MVI, EtOH level 161 on admission (6) Chronic hyponatremia ICD Codes: E87.1 - Hypo-osmolality and hyponatremia Status: Chronic Plan: Monitor and replete as needed Likely related to poor nutrition given homelessness * Fluid restriction (7) Hypokalemia ICD Codes: E87.6 - Hypokalemia Status: Resolved (8) Hx of cardiac arrhythmia ICD Codes: Z86.79 - Personal history of other diseases of the circulatory system Status: Chronic Plan: Continue home dose metoprolol Monitor on telemetry (9) Fluids/Electrolytes/Nutrition/Prophylaxis Status: Chronic Plan: Fluids: tolerating PO, fluid restrict 1500cc daily Electrolytes: monitor and replete as needed Nutrition: heart-healthy diet, DVT Prophylaxis: Early ambulation. SCDs. Hold pharmacologic intervention until post-operative GI Prophylaxis: Protonix 40mg daily given alcoholism Disposition: discharge pending; PT has recommended rehab, but not accepted by any facilities. Pt. is homeless so safe discharge cannot be accomplished at this time. Problem Qualifiers (1) Humeral fracture: Tasha Nye MD Apr 08, 2017 08:43
[2017-04-08] MEDS: SODIUM CHLORIDE 0.9% FLUSH 5 ML FLUSH IVF SCH ×2 (09:00→21:00)
[2017-04-08] MEDS: PANTOPRAZOLE SOD 40 MG DELAYED RELEASE TAB PO SCH (09:48)
[2017-04-08] MEDS: THIAMINE HCL 100 MG TAB PO SCH (09:48)
[2017-04-08] MEDS: DOCUSATE SODIUM 50 MG/SENNA 8.6 MG TAB PO SCH ×2 (09:48→21:33)
[2017-04-08] MEDS: CALCIUM/VITAMIN D 250 MG/125 U TAB PO SCH ×3 (09:48→18:00)
[2017-04-08] MEDS: levETIRAcetam 500 MG TAB PO SCH ×2 (09:48→21:33)
[2017-04-08] MEDS: CHOLECALCIFEROL (VIT D3) 1000 UNIT TAB PO SCH (09:48)
[2017-04-08] MEDS: POTASSIUM CHLORIDE 10 MEQ CONTROLLED RELEASE TAB PO SCH (09:48)
[2017-04-08 09:49] VITALS: BP 124/71; PULSE 109; RESP 17; TEMP 97.7; O2SAT 99
[2017-04-08] MEDS: METOPROLOL TARTRATE 25 MG TAB PO SCH ×2 (09:53→21:33)
[2017-04-08 16:00] VITALS: BP 121/80; PULSE 90; RESP 18; TEMP 97.6; O2SAT 99
[2017-04-08 19:32] VITALS: BP 129/75; PULSE 93; RESP 18; TEMP 97.5; O2SAT 98
[2017-04-09] VITALS: BP 110/66; PULSE 93; RESP 16; TEMP 98.5; O2SAT 97
[2017-04-09] MEDS: ACETAMINOPHEN/HYDROcodone 325 MG/10 MG TAB PO PRN ×5 (02:10→21:03)
[2017-04-09 08:00] VITALS: BP 136/91; PULSE 89; RESP 18; TEMP 97.9; O2SAT 99
[2017-04-09] MEDS: THIAMINE HCL 100 MG TAB PO SCH (08:53)
[2017-04-09] MEDS: CALCIUM/VITAMIN D 250 MG/125 U TAB PO SCH ×3 (08:54→16:54)
[2017-04-09] MEDS: SODIUM CHLORIDE 0.9% FLUSH 5 ML FLUSH IVF SCH ×2 (08:54→21:00)
[2017-04-09] MEDS: POTASSIUM CHLORIDE 10 MEQ CONTROLLED RELEASE TAB PO SCH (08:54)
[2017-04-09] MEDS: DOCUSATE SODIUM 50 MG/SENNA 8.6 MG TAB PO SCH ×2 (08:54→21:03)
[2017-04-09] MEDS: METOPROLOL TARTRATE 25 MG TAB PO SCH ×2 (08:54→21:03)
[2017-04-09] MEDS: PANTOPRAZOLE SOD 40 MG DELAYED RELEASE TAB PO SCH (08:54)
[2017-04-09] MEDS: levETIRAcetam 500 MG TAB PO SCH ×2 (08:54→21:03)
[2017-04-09] MEDS: CHOLECALCIFEROL (VIT D3) 1000 UNIT TAB PO SCH (08:54)
--- NOTE | 2017-04-09 10:14 | HHI.FPPN ---
Subjective Remarks Patient seen and examined this morning. He feels more steady on his feet today. He is not having any difficulty with his shoulder with pain being controlled with as needed medications. He doesn't have any fevers or chills or new complaints. Continues to be swollen in the LEs but he is not elevating them as counseled previously. Objective Vitals Vital Signs Date Time Temp Pulse Resp B/P (MAP) Pulse Ox O2 Delivery O2 Flow Rate FiO2 04/09/17 08:00 97.9 89 18 136/91 (106) 99 04/09/17 00:00 98.5 93 16 110/66 (81) 97 04/08/17 19:32 97.5 93 18 129/75 (93) 98 04/08/17 16:00 97.6 90 18 121/80 (94) 99 I/O 04/08/17 04/08/17 04/08/17 04/09/17 04/09/17 04/09/17 07:00 15:00 23:00 07:00 15:00 23:00 Intake Total 120 ml 960 ml 120 ml 100 ml Output Total 200 ml Balance -80 ml 960 ml 120 ml 100 ml Intake Oral 120 ml 960 ml 120 ml 100 ml Output Urine Total 200 ml # Voids 6 5 4 2 # Bowel Movements 0 1 0 0 Result Diagram: 04/08/17 0652 04/08/17 0652 Imaging Last Impressions Shoulder X-Ray 04/06/17 0000 Signed Impressions: Service Date/Time: March 13:39 - CONCLUSION: 1. Interval revision internal fixation of the proximal humerus. 2. Findings suggest posterior dislocation at the glenohumeral joint. Zack Lees MD Elbow X-Ray 04/02/17 0000 Signed Impressions: Service Date/Time: Sunday, April 02, 2017 09:58 - CONCLUSION: Plate and screw fixation proximal humerus across comminuted fracture. Near-anatomic alignment. Positive joint effusion. Rg Nuñez MD Chest X-Ray 04/01/17 1318 Signed Impressions: Service Date/Time: Saturday, April 01, 2017 13:44 - CONCLUSION: No acute cardio pulmonary disease. Zack Osorio Jr., MD Objective Remarks GENERAL: Well-nourished, well-developed patient sitting at the edge of the bed, in no acute distress with a sling on his leg arm. Anterior left upper arm with dressing intact. SKIN: Warm and dry. Erythema previously noted on right shoulder improved. There is a papular rash on the midstomach crossing midline, with evidence of excoriation. HEAD: Normocephalic. Atraumatic. EYES: No scleral icterus. No injection or drainage. NECK: Supple, trachea midline. No JVD or lymphadenopathy. CARDIOVASCULAR: Regular rate and rhythm without murmurs, gallops, or rubs. RESPIRATORY: Breath sounds equal bilaterally. No wheezes or rhonchi. No accessory muscle use. GASTROINTESTINAL: Abdomen soft, non-tender, nondistended. EXTREMITIES: No cyanosis. He does have 2+ edema to mid-lara bilaterally, nontender, pitting. Pulses are 2+ distally in the UEs and LEs bilaterally. Moves fingers of left hand fully; hand remains swollen. NEUROLOGICAL: Awake, alert. Non-focal. He is noted to ambulate without difficulty from the bathroom to the bed, without use of any assistive devices. Medications and IVs Inpatient Medications Acetaminophen (Tylenol) 650 mg Q4H PRN PO TEMP > 100.4, PAIN 1-2 Last administered on 04/06/17 04:38; Start 04/01/17 at 15:30 Acetaminophen/ Hydrocodone Bitart ([place] 5-325 Mg) 1 tab Q4H PRN PO PAIN SCALE 3 TO 5; Start 04/01/17 at 17:30 Acetaminophen/ Hydrocodone Bitart ([place] 10-325 Mg) 1 tab Q4H PRN PO PAIN SCALE 6 TO 10 Last administered on 04/09/17 08:53; Start 04/01/17 at 17:30 Bisacodyl (Dulcolax Supp) 10 mg DAILY PRN RECTAL SEVERE CONSITIPATION; Start 04/01/17 at 15:30 Calcium/Vitamin D (Oscal-D 250-125) 250 mg TID PO Last administered on 08:54; Start 04/04/17 at 18:00 Cefazolin Sodium 1000 mg/Sodium Chloride 100 ml @ 200 mls/hr Q8H IV Last administered on 04/04/17 04:12; Start 04/02/17 at 12:00; Stop 04/04/17 at 14 :09; Status DC Cefazolin Sodium/ Dextrose 50 ml @ 100 mls/hr Q8H IV Last administered on 13:00; Start 04/04/17 at 21:00; Stop 04/07/17 at 13:29; Status DC Chlorhexidine Gluconate (Chlorhexidine 2% Cloth) 3 pack DIEING OUT MACHINE OPERATOR PRN TOPICAL SEE LABEL COMMENTS; Start 04/04/17 at 12:15; Stop 04/07/17 at 12:14; Status DC Cholecalciferol (Vitamin D3) 1,000 units DAILY PO Last administered on 08:54; Start 04/05/17 at 09:00 Diphenhydramine HCl (Benadryl) 25 mg Q6H PRN PO ITCHING; Start 04/04/17 at 14: 00 Enalaprilat (Vasotec Inj) 1.25 mg Q6H PRN IV PUSH SBP> OR = 180, DBP> OR = 100 ; Start 04/01/17 at 23:00 Ergocalciferol (Drisdol) 50,000 units Q7D PO Last administered on 04/04/17 17 :00; Start 04/04/17 at 16:00 Flumazenil (Romazicon Inj) 0.2 mg Q1M PRN IV PUSH SEE LABEL COMMENTS; Start at 17:30 Folic Acid (Folate) 1 mg DAILY PO Last administered on 04/06/17 09:22; Start 04/01/17 at 17:30; Stop 04/06/17 at 17:29; Status DC Insulin Human Regular (NovoLIN R INJ) See Protocol Table ... DIEING OUT MACHINE OPERATOR PRN SQ SEE PROTOCOL TABLE; Start 04/04/17 at 12:15; Stop 04/04/17 at 15:18; Status DC IV Flush (NS Flush) 2 ml BID IVF Last administered on 04/08/17 21:00; Start 04/04/17 at 21:00 Lactated Ringer's 1,000 ml @ 30 mls/hr Q24H PRN IV SEE LABEL COMMENTS; Start 04/04/17 at 12:15; Stop 04/04/17 at 15:20; Status DC Lactulose (Lactulose Liq) 30 ml DAILY PRN PO SEVERE CONSITIPATION Last administered on 04/05/17 08:12; Start 04/01/17 at 15:30 Levetriacetam (Keppra) 500 mg BID PO Last administered on 04/09/17 08:54; Start 04/01/17 at 21:00 Lorazepam (Ativan Inj) 2 mg Q15M PRN IV PUSH CIWA > 20; Start 04/01/17 at 17: 30 Lorazepam (Ativan) 2 mg Q2H PRN PO CIWA 11-14; Start 04/01/17 at 17:30 Magnesium Hydroxide (Milk Of Magnesia Liq) 30 ml Q12H PRN PO Mild constipation ; Start 04/01/17 at 15:30 Metoprolol Tartrate (Lopressor) 25 mg DIEING OUT MACHINE OPERATOR PRN PO SEE LABEL COMMENTS; Start 04/04/17 at 12:15; Stop 04/04/17 at 15:20; Status DC Miscellaneous Information ALL NURSING DEPARTME... UNSCH PRN .XX SEE LABEL COMMENTS; Start 04/04/17 at 14:22; Stop 04/05/17 at 14:21; Status DC Morphine Sulfate (Morphine Inj) 2 mg Q3H PRN IV PUSH BREAKTHROUGH PAIN Last administered on 04/05/17 06:07; Start 04/01/17 at 17:30 Multivitamins/ Minerals Therapeutic (Theragran M Tab) 1 tab DAILY PO Last administered on 04/06/17 09:22; Start 04/01/17 at 17:30; Stop 04/06/17 at 17 :29; Status DC Naloxone HCl (Narcan Inj) 0.4 mg UNSCH PRN IV PUSH SEE LABEL COMMENTS; Start 04/01/17 at 17:30 Ondansetron HCl (Zofran Inj) 4 mg Q6H PRN IVP NAUSEA OR VOMITING Last administered on 04/02/17 08:30; Start 04/01/17 at 15:30 Pantoprazole Sodium (Protonix) 40 mg DAILY PO Last administered on 04/09/17 08:54; Start 04/01/17 at 17:30 Potassium Chloride (KCl) 20 meq ONCE ONCE PO Last administered on 04/06/17 15:41; Start 04/06/17 at 14:30; Stop 04/06/17 at 14:31; Status DC Povidone Iodine (Betadine 5% Antisepsis Kit) 1 applic DIEING OUT MACHINE OPERATOR PRN EACH NARE SEE LABEL COMMENTS; Start 04/04/17 at 12:15; Stop 04/07/17 at 12:14; Status DC Senna/Docusate Sodium (Kimberlyn-Colace) 1 tab BID PO Last administered on 08:54; Start 04/01/17 at 21:00 Sennosides (Senokot) 17.2 mg Q12H PRN PO Moderate constipation; Start at 15:30 Sodium Chloride 500 ml @ 30 mls/hr [id number] PRN IV SEE LABEL COMMENTS; Start at 12:15; Stop 04/04/17 at 15:20; Status DC Sodium Chloride (NS Flush) 2 ml BID IV FLUSH Last administered on 04/03/17 20 :34; Start 04/01/17 at 21:00; Stop 04/04/17 at 15:21; Status DC Thiamine HCl (Vitamin B1) 100 mg DAILY PO Last administered on 04/09/17 08:53 ; Start 04/01/17 at 17:30 Vancomycin HCl 1000 mg/Sodium Chloride 250 ml @ 250 mls/hr Q12H IV Last administered on 04/06/17 09:21; Start 04/04/17 at 22:00; Stop 04/06/17 at 10 :59; Status DC Urinary Catheter: No Vascular Central Line Catheter: No A/P Assessment and Plan 62M with seizure disorder and alcoholism and recent left shoulder ORIF who presents with displaced hardware in the left humerus. He was admitted with medical management of chronic conditions and pain control. He remains in the hospital due to PT/OT recommending Discharge Planning Has been cleared by ortho. He is no longer on antibiotics. His low sodium would appear to be chronic. PT has also recommended rehab, will have case management follow up. Problem List: (1) Contact dermatitis ICD Codes: L25.9 - Unspecified contact dermatitis, unspecified cause Plan: He is noted to have what appears to be a dermatitis over the abdomen but this may be related to irritation from the sling. Not symptomatic. Possible midlines a low suspicion for shingles or other viral etiology * Recommend topical emollient for now. We will escalate to topical steroid if indicated (2) Humeral fracture ICD Codes: S42.309A - Unspecified fracture of shaft of humerus, unspecified arm , initial encounter for closed fracture Status: Acute Plan: Evaluated by Ortho, Dr. Estrada. * Revision left proximal humerus fracture ORIF on 04/04 * Nonweightbearing left upper extremity * Sling and swath at all times except for pendulum swings with OT * Daily dressing changes * Patient is noncompliant and chronic EtOH use * Follow-up Dr. Foote or [place] in 2 weeks after discharge * PT has recommended rehab. (3) Painful orthopaedic hardware ICD Codes: T84.84XA - Pain due to internal orthopedic prosthetic devices, implants and grafts, initial encounter Status: Resolved Plan: As above (4) Cellulitis of abdominal wall ICD Codes: L03.311 - Cellulitis of abdominal wall Status: Resolved Plan: Patient with cellulitis of abdominal wall and left shoulder, resolved. Likely related to DVT prophylaxis entry sites given location and surgical site on left arm. Not febrile, not meeting sepsis criteria since admission. * Ancef 04/02-04/07 * Vancomycin 04/04-04/06 * Monitor for signs of infection, fever (5) Frequent falls ICD Codes: R29.6 - Repeated falls Status: Chronic Plan: Chronic, likely related to alcoholism. No evidence of seizure prior to admission. Fall precautions PT evaluation and therapy 7x/week (6) Alcohol abuse ICD Codes: F10.10 - Alcohol abuse, uncomplicated Status: Chronic Plan: Continue home dose Keppra CIWA protocol with MVI, EtOH level 161 on admission (7) Chronic hyponatremia ICD Codes: E87.1 - Hypo-osmolality and hyponatremia Status: Chronic Plan: Monitor and replete as needed Likely related to poor nutrition given homelessness * Fluid restriction (8) Hypokalemia ICD Codes: E87.6 - Hypokalemia Status: Resolved (9) Hx of cardiac arrhythmia ICD Codes: Z86.79 - Personal history of other diseases of the circulatory system Status: Chronic Plan: Continue home dose metoprolol Monitor on telemetry (10) Fluids/Electrolytes/Nutrition/Prophylaxis Status: Chronic Plan: Fluids: tolerating PO, fluid restrict 1500cc daily. Electrolytes: monitor and replete as needed. Nutrition: heart-healthy diet. DVT Prophylaxis: Early ambulation. SCDs. Lovenox GI Prophylaxis: Protonix 40mg daily given alcoholism. Disposition: discharge pending; PT has recommended rehab, but no insurance. Pt. is homeless so safe discharge has not be accomplished Problem Qualifiers (1) Contact dermatitis: Qualified Codes: L24.4 - Irritant contact dermatitis due to drugs in contact with skin (2) Humeral fracture: Eunice Martinez MD R2 Apr 09, 2017 10:14
[2017-04-09 12:00] VITALS: BP 114/68; PULSE 89; RESP 18; TEMP 97.3; O2SAT 97
[2017-04-09] MEDS: ENOXAPARIN SODIUM 40 MG/0.4 ML SYRINGE SQ SCH (12:23)
[2017-04-09 16:00] VITALS: BP 125/67; PULSE 87; RESP 18; TEMP 97.2; O2SAT 94
[2017-04-09 19:23] VITALS: BP 162/72; PULSE 90; RESP 19; TEMP 97.3; O2SAT 97
[2017-04-09 23:27] VITALS: BP 132/75; PULSE 88; RESP 19; TEMP 97.8; O2SAT 100
[2017-04-10] MEDS: ACETAMINOPHEN/HYDROcodone 325 MG/10 MG TAB PO PRN ×5 (01:11→21:45)
[2017-04-10 08:01] VITALS: BP 147/87; PULSE 92; RESP 18; TEMP 97.4; O2SAT 100
[2017-04-10] MEDS: PANTOPRAZOLE SOD 40 MG DELAYED RELEASE TAB PO SCH (08:34)
[2017-04-10] MEDS: THIAMINE HCL 100 MG TAB PO SCH (08:34)
[2017-04-10] MEDS: CHOLECALCIFEROL (VIT D3) 1000 UNIT TAB PO SCH (08:34)
[2017-04-10] MEDS: CALCIUM/VITAMIN D 250 MG/125 U TAB PO SCH ×3 (08:34→17:24)
[2017-04-10] MEDS: METOPROLOL TARTRATE 25 MG TAB PO SCH ×2 (08:35→20:37)
[2017-04-10] MEDS: ACETAMINOPHEN 325 MG TAB PO PRN (08:35)
[2017-04-10] MEDS: DOCUSATE SODIUM 50 MG/SENNA 8.6 MG TAB PO SCH ×2 (08:35→20:37)
[2017-04-10] MEDS: levETIRAcetam 500 MG TAB PO SCH ×2 (08:35→20:37)
[2017-04-10] MEDS: POTASSIUM CHLORIDE 10 MEQ CONTROLLED RELEASE TAB PO SCH (08:35)
[2017-04-10] MEDS: SODIUM CHLORIDE 0.9% FLUSH 5 ML FLUSH IVF SCH ×2 (08:37→20:37)
[2017-04-10 12:00] VITALS: BP 133/71; PULSE 91; RESP 18; TEMP 97.7; O2SAT 100
--- NOTE | 2017-04-10 12:27 | HHI.FPPN ---
Subjective Remarks Patient states that he is doing fine this morning. He is says that he is still having some swelling in his bilateral lower extremities that causes his skin to be really tight. He states that is painful to walk on his legs because they're so swollen. He states that he worked with physical therapy this morning and was able to walk farther than he has before. He has a goal to walk farther every day. No fevers or chills, no chest pain, no shortness of breath, no abdominal pain, no nausea or vomiting, no diarrhea or constipation. Objective Vitals Vital Signs Date Time Temp Pulse Resp B/P (MAP) Pulse Ox O2 Delivery O2 Flow Rate FiO2 04/10/17 08:01 97.4 92 18 147/87 (107) 100 04/10/17 07:30 Room Air 04/09/17 23:27 97.8 88 19 132/75 (94) 100 04/09/17 19:23 97.3 90 19 162/72 (102) 97 04/09/17 16:00 97.2 87 18 125/67 (86) 94 I/O 04/09/17 04/09/17 04/09/17 04/10/17 04/10/17 04/10/17 07:00 15:00 23:00 07:00 15:00 23:00 Intake Total 100 ml 200 ml 200 ml 100 ml Balance 100 ml 200 ml 200 ml 100 ml Intake Oral 100 ml 200 ml 200 ml 100 ml # Voids 2 4 5 3 # Bowel Movements 0 1 0 0 Result Diagram: 04/08/17 0652 04/08/17 0652 Imaging Last Impressions Shoulder X-Ray 04/06/17 0000 Signed Impressions: Service Date/Time: March 13:39 - CONCLUSION: 1. Interval revision internal fixation of the proximal humerus. 2. Findings suggest posterior dislocation at the glenohumeral joint. Zack Lees MD Elbow X-Ray 04/02/17 0000 Signed Impressions: Service Date/Time: Sunday, April 02, 2017 09:58 - CONCLUSION: Plate and screw fixation proximal humerus across comminuted fracture. Near-anatomic alignment. Positive joint effusion. Rg Nuñez MD Chest X-Ray 04/01/17 1318 Signed Impressions: Service Date/Time: Saturday, April 01, 2017 13:44 - CONCLUSION: No acute cardio pulmonary disease. Zack Osorio Jr., MD Objective Remarks GENERAL: Well-nourished, well-developed patient sitting at the edge of the bed, in no acute distress with a sling on his leg arm. Anterior left upper arm with dressing intact. SKIN: Warm and dry. Erythema previously noted on right shoulder improved. There is a papular rash on the midstomach crossing midline, with evidence of excoriation. HEAD: Normocephalic. Atraumatic. EYES: No scleral icterus. No injection or drainage. NECK: Supple, trachea midline. No JVD or lymphadenopathy. CARDIOVASCULAR: Regular rate and rhythm without murmurs, gallops, or rubs. RESPIRATORY: Breath sounds equal bilaterally. No wheezes or rhonchi. No accessory muscle use. GASTROINTESTINAL: Abdomen soft, non-tender, nondistended. EXTREMITIES: No cyanosis. He does have 2+ edema to mid-lara bilaterally, nontender, pitting. Pulses are 2+ distally in the UEs and LEs bilaterally. Moves fingers of left hand fully; hand remains swollen. NEUROLOGICAL: Awake, alert. Non-focal. He is noted to ambulate without difficulty from the bathroom to the bed, without use of any assistive devices. A/P Assessment and Plan 62M with seizure disorder and alcoholism and recent left shoulder ORIF who presents with displaced hardware in the left humerus. He was admitted with medical management of chronic conditions and pain control. He remains in the hospital due to PT/OT recommending Discharge Planning Has been cleared by ortho. He is no longer on antibiotics. His low sodium would appear to be chronic. PT has also recommended rehab, will have case management follow up. Problem List: (1) Contact dermatitis ICD Codes: L25.9 - Unspecified contact dermatitis, unspecified cause Plan: He is noted to have what appears to be a dermatitis over the abdomen but this may be related to irritation from the sling. Not symptomatic. Possible midlines a low suspicion for shingles or other viral etiology * Recommend topical emollient for now. We will escalate to topical steroid if indicated (2) Humeral fracture ICD Codes: S42.309A - Unspecified fracture of shaft of humerus, unspecified arm , initial encounter for closed fracture Status: Acute Plan: Evaluated by Ortho, Dr. Estrada. * Revision left proximal humerus fracture ORIF on 04/04 * Nonweightbearing left upper extremity * Sling and swath at all times except for pendulum swings with OT * Daily dressing changes * Patient is noncompliant and chronic EtOH use * Follow-up Dr. Foote or PA in 2 weeks after discharge * PT has recommended rehab. (3) Painful orthopaedic hardware ICD Codes: T84.84XA - Pain due to internal orthopedic prosthetic devices, implants and grafts, initial encounter Status: Resolved Plan: As above (4) Cellulitis of abdominal wall ICD Codes: L03.311 - Cellulitis of abdominal wall Status: Resolved Plan: Patient with cellulitis of abdominal wall and left shoulder, resolved. Likely related to DVT prophylaxis entry sites given location and surgical site on left arm. Not febrile, not meeting sepsis criteria since admission. * Ancef 04/02-04/07 * Vancomycin 04/04-04/06 * Monitor for signs of infection, fever (5) Frequent falls ICD Codes: R29.6 - Repeated falls Status: Chronic Plan: Chronic, likely related to alcoholism. No evidence of seizure prior to admission. Fall precautions PT evaluation and therapy 7x/week (6) Alcohol abuse ICD Codes: F10.10 - Alcohol abuse, uncomplicated Status: Chronic Plan: Continue home dose Keppra CIWA protocol with MVI, EtOH level 161 on admission (7) Chronic hyponatremia ICD Codes: E87.1 - Hypo-osmolality and hyponatremia Status: Chronic Plan: Monitor and replete as needed Likely related to poor nutrition given homelessness * Fluid restriction (8) Hypokalemia ICD Codes: E87.6 - Hypokalemia Status: Resolved (9) Hx of cardiac arrhythmia ICD Codes: Z86.79 - Personal history of other diseases of the circulatory system Status: Chronic Plan: Continue home dose metoprolol Monitor on telemetry (10) Fluids/Electrolytes/Nutrition/Prophylaxis Status: Chronic Plan: Fluids: tolerating PO, fluid restrict 1500cc daily. Electrolytes: monitor and replete as needed. Nutrition: heart-healthy diet. DVT Prophylaxis: Early ambulation. SCDs. Lovenox GI Prophylaxis: Protonix 40mg daily given alcoholism. Disposition: discharge pending; PT has recommended rehab, but no insurance. Pt. is homeless so safe discharge has not be accomplished Problem Qualifiers (1) Contact dermatitis: Qualified Codes: L24.4 - Irritant contact dermatitis due to drugs in contact with skin (2) Humeral fracture: Dora Montes De Oca MD R1 Apr 10, 2017 12:27
[2017-04-10] MEDS: ENOXAPARIN SODIUM 40 MG/0.4 ML SYRINGE SQ SCH (12:52)
[2017-04-10 16:00] VITALS: BP 170/101; PULSE 92; RESP 18; TEMP 96.6; O2SAT 98
--- NOTE | 2017-04-10 16:22 | HHI.FF ---
Face to Face Verification Diagnosis: (1) Humeral fracture Occupational Therapy Left UE Weight Bearing: Non WB Left UE Range of Motion: No ROM Additional Instructions [id number] at all times Nursing RN: 3 days/week x 2 weeks Nursing: Dressing changes Dressing Changes: Xeroform, Coverderm/Primapore I have seen patient Chencho Morales on 04/10/17. My clinical findings support the need for the requested home health care services because: Limited ability to care for self I certify that my clinical findings support that this patient is homebound because: Post-op weakness Impaired cognitive ability/safety Yadiel Real Jr. Apr 10, 2017 16:22
[2017-04-10 21:30] VITALS: BP 166/86; PULSE 97; RESP 18; TEMP 98.2; O2SAT 99
[2017-04-11 00:20] VITALS: BP 120/67; PULSE 97; RESP 18; TEMP 97.6; O2SAT 97
[2017-04-11] MEDS: ACETAMINOPHEN/HYDROcodone 325 MG/10 MG TAB PO PRN ×3 (01:51→13:20)
[2017-04-11 04:30] VITALS: BP 129/84; PULSE 96; RESP 18; TEMP 98.2; O2SAT 96
--- NOTE | 2017-04-11 07:02 | PD.ORT.PN ---
Subjective Subjective Remarks Pain controlled no new complaints. Patient is disheveled and sling is out of position Objective Vitals Vital Signs Date Time Temp Pulse Resp B/P (MAP) Pulse Ox O2 Delivery O2 Flow Rate FiO2 04/11/17 04:30 98.2 96 18 129/84 (99) 96 04/11/17 00:20 97.6 97 18 120/67 (84) 97 04/10/17 21:30 98.2 97 18 166/86 (112) 99 04/10/17 16:00 96.6 92 18 170/101 (124) 98 04/10/17 12:00 97.7 91 18 133/71 (91) 100 04/10/17 08:01 97.4 92 18 147/87 (107) 100 04/10/17 07:30 Room Air I/O 04/10/17 04/10/17 04/10/17 04/11/17 04/11/17 04/11/17 07:00 15:00 23:00 07:00 15:00 23:00 Intake Total 100 ml 600 ml 480 ml 200 ml Balance 100 ml 600 ml 480 ml 200 ml Intake Oral 100 ml 600 ml 480 ml 200 ml # Voids 3 5 2 3 # Bowel Movements 0 0 0 1 Result Diagram: 04/08/17 0652 04/08/17 0652 Imaging Last 72 hours Impressions Shoulder X-Ray 04/06/17 0000 Signed Impressions: Service Date/Time: March 13:39 - CONCLUSION: 1. Interval revision internal fixation of the proximal humerus. 2. Findings suggest posterior dislocation at the glenohumeral joint. Zack Lees MD Last 72 hours Impressions Shoulder X-Ray 04/04/17 0000 Signed Impressions: Service Date/Time: Tuesday, April 04, 2017 13:43 - CONCLUSION: Intraoperative images. Zack Lees MD Objective Remarks Left upper extremity: Clean dry dressings intact. Sling and swath repositioned. Intact sensation distally with full extension and flexion of all fingers Assessment & Plan Assessment and Plan 1) Revision left proximal humerus fracture ORIF POD 5 Nonweightbearing left upper extremity Sling and swath at all times except for pendulum swings with OT At this time dressing changes may be every other day Patient is noncompliant and chronic EtOH use Discharge planning - ortho cleared. Long discussion concerning his proximal humerus fracture and noncompliance. He is to continue to remain in sling and swath at all times. He has had one revision due to noncompliance. If he was to fall or use the arm he will causes hardware failure. Follow-up Dr. Foote or [facility] in 2 weeks Yadiel Real Jr. Apr 11, 2017 07:02
[2017-04-11 08:00] VITALS: BP 151/82; PULSE 96; RESP 18; TEMP 99; O2SAT 95
[2017-04-11] MEDS: DOCUSATE SODIUM 50 MG/SENNA 8.6 MG TAB PO SCH (08:27)
[2017-04-11] MEDS: POTASSIUM CHLORIDE 10 MEQ CONTROLLED RELEASE TAB PO SCH (08:27)
[2017-04-11] MEDS: CALCIUM/VITAMIN D 250 MG/125 U TAB PO SCH ×2 (08:27→13:20)
[2017-04-11] MEDS: METOPROLOL TARTRATE 25 MG TAB PO SCH (08:27)
[2017-04-11] MEDS: CHOLECALCIFEROL (VIT D3) 1000 UNIT TAB PO SCH (08:27)
[2017-04-11] MEDS: PANTOPRAZOLE SOD 40 MG DELAYED RELEASE TAB PO SCH (08:27)
[2017-04-11] MEDS: THIAMINE HCL 100 MG TAB PO SCH (08:27)
[2017-04-11] MEDS: levETIRAcetam 500 MG TAB PO SCH (08:27)
[2017-04-11] MEDS: SODIUM CHLORIDE 0.9% FLUSH 5 ML FLUSH IVF SCH (08:28)
--- NOTE | 2017-04-11 08:48 | HHI.DCPOC ---
Discharge Care Plan Diagnosis: (1) Humeral fracture Goals to Promote Your Health * To prevent worsening of your condition and complications * To maintain your health at the optimal level Directions to Meet Your Goals Wound care every other day via home health Go to your follow-up orthopedic surgery appointment Take your medications as prescribed Follow your dietary instruction Follow activity as directed If your symptoms worsen call your PCP, if no PCP go to Urgent Care Center or Emergency Room Smoking is Dangerous to Your Health. Avoid second hand smoke Call the 24-hour hour crisis hotline for domestic abuse at Eunice Martinez MD R2 Apr 11, 2017 08:48
[2017-04-11] MEDS ORDERED: SENN1TAB PO (08:51)
[2017-04-11] MEDS ORDERED: LEVE500 PO (08:51)
[2017-04-11] MEDS ORDERED: METO25TA3 PO (08:51)
[2017-04-11] MEDS ORDERED: PETROLATUM 30 GM TUBE TOPICAL PRN (09:15)
--- NOTE | 2017-04-11 10:27 | HHI.FPPN ---
Subjective Remarks Pt states that he is doing well this morning. The swelling has gone down in his legs, but he is still experiencing slight pain in the dorsum of his feet. No fever/chills, no CP, no SOB, no abdominal pain, no nausea/vomiting, he is stooling well. He is ready to leave, but would states that he would not be able to take care of his left arm by himself. (Dora Montes De Oca MD R1) Objective Vitals Vital Signs Date Time Temp Pulse Resp B/P (MAP) Pulse Ox O2 Delivery O2 Flow Rate FiO2 04/11/17 04:30 98.2 96 18 129/84 (99) 96 04/11/17 00:20 97.6 97 18 120/67 (84) 97 04/10/17 21:30 98.2 97 18 166/86 (112) 99 04/10/17 16:00 96.6 92 18 170/101 (124) 98 04/10/17 12:00 97.7 91 18 133/71 (91) 100 I/O 04/10/17 04/10/17 04/10/17 04/11/17 04/11/17 04/11/17 07:00 15:00 23:00 07:00 15:00 23:00 Intake Total 100 ml 600 ml 480 ml 200 ml Balance 100 ml 600 ml 480 ml 200 ml Intake Oral 100 ml 600 ml 480 ml 200 ml # Voids 3 5 2 3 # Bowel Movements 0 0 0 1 (Dora Montes De Oca MD R1) Result Diagram: 04/08/17 0652 04/08/17 0652 Imaging Last Impressions Shoulder X-Ray 04/06/17 0000 Signed Impressions: Service Date/Time: March 13:39 - CONCLUSION: 1. Interval revision internal fixation of the proximal humerus. 2. Findings suggest posterior dislocation at the glenohumeral joint. Zack Lees MD Elbow X-Ray 04/02/17 0000 Signed Impressions: Service Date/Time: Sunday, April 02, 2017 09:58 - CONCLUSION: Plate and screw fixation proximal humerus across comminuted fracture. Near-anatomic alignment. Positive joint effusion. Rg Nuñez MD Chest X-Ray 04/01/17 1318 Signed Impressions: Service Date/Time: Saturday, April 01, 2017 13:44 - CONCLUSION: No acute cardio pulmonary disease. Zack Osorio Jr., MD Objective Remarks GENERAL: Well-nourished, well-developed patient sitting at the edge of the bed, in no acute distress with a sling on his leg arm. Anterior left upper arm with dressing intact. SKIN: Warm and dry. Erythema previously noted on right shoulder improved. There is a papular rash on the midstomach crossing midline, with evidence of excoriation underlying a bandage that is C/D/I. HEAD: Normocephalic. Atraumatic. EYES: No scleral icterus. No injection or drainage. NECK: Supple, trachea midline. No JVD or lymphadenopathy. CARDIOVASCULAR: Regular rate and rhythm without murmurs, gallops, or rubs. RESPIRATORY: Breath sounds equal bilaterally. No wheezes or rhonchi. No accessory muscle use. GASTROINTESTINAL: Abdomen soft, non-tender, nondistended. EXTREMITIES: No cyanosis. He does have 1+ edema to mid-lara in left leg, nontender, pitting. Pulses are 2+ distally in the UEs and LEs bilaterally. Moves fingers of left hand fully; hand remains swollen. NEUROLOGICAL: Awake, alert. Non-focal. He is noted to ambulate without difficulty from the bathroom to the bed, without use of any assistive devices. (Dora Montes De Oca MD R1) A/P Assessment and Plan 62M with seizure disorder and alcoholism and recent left shoulder ORIF who presents with displaced hardware in the left humerus. He was admitted with medical management of chronic conditions and pain control. He remains in the hospital due to PT/OT recommending Discharge Planning Has been cleared by ortho. He is no longer on antibiotics. His low sodium would appear to be chronic. Medically stable for discharge. Case management working on discharge plan to possibly include home health with wound care. Pt understands that he will have to follow up with ortho. (Dora Montes De Oca MD R1) Attending Attestation Patient seen and examined. Case reviewed and discussed with the resident team. Agree with plan of care as discussed with me and documented in the resident note. (Tasha Nye MD) Problem List: (1) Contact dermatitis ICD Codes: L25.9 - Unspecified contact dermatitis, unspecified cause Plan: He is noted to have what appears to be a dermatitis over the abdomen but this may be related to irritation from the sling. Not symptomatic. Possible midlines a low suspicion for shingles or other viral etiology * Recommend topical emollient for now. * Ordered Vaseline ointment (2) Humeral fracture ICD Codes: S42.309A - Unspecified fracture of shaft of humerus, unspecified arm , initial encounter for closed fracture Status: Acute Plan: Evaluated by Ortho, Dr. Estrada. * Revision left proximal humerus fracture ORIF on 04/04 * Nonweightbearing left upper extremity * Sling and swath at all times except for pendulum swings with OT * Daily dressing changes * Patient is noncompliant and chronic EtOH use * Follow-up Dr. Foote or [place] in 2 weeks after discharge * PT has recommended rehab. (3) Painful orthopaedic hardware ICD Codes: T84.84XA - Pain due to internal orthopedic prosthetic devices, implants and grafts, initial encounter Status: Resolved Plan: As above (4) Cellulitis of abdominal wall ICD Codes: L03.311 - Cellulitis of abdominal wall Status: Resolved Plan: Patient with cellulitis of abdominal wall and left shoulder, resolved. Likely related to DVT prophylaxis entry sites given location and surgical site on left arm. Not febrile, not meeting sepsis criteria since admission. * Ancef 04/02-04/07 * Vancomycin 04/04-04/06 * Monitor for signs of infection, fever (5) Frequent falls ICD Codes: R29.6 - Repeated falls Status: Chronic Plan: Chronic, likely related to alcoholism. No evidence of seizure prior to admission. Fall precautions PT evaluation and therapy 7x/week (6) Alcohol abuse ICD Codes: F10.10 - Alcohol abuse, uncomplicated Status: Chronic Plan: Continue home dose Keppra CIWA protocol with MVI, EtOH level 161 on admission (7) Chronic hyponatremia ICD Codes: E87.1 - Hypo-osmolality and hyponatremia Status: Chronic Plan: Monitor and replete as needed Likely related to poor nutrition given homelessness * Fluid restriction (8) Hypokalemia ICD Codes: E87.6 - Hypokalemia Status: Resolved (9) Hx of cardiac arrhythmia ICD Codes: Z86.79 - Personal history of other diseases of the circulatory system Status: Chronic Plan: Continue home dose metoprolol Monitor on telemetry (10) Fluids/Electrolytes/Nutrition/Prophylaxis Status: Chronic Plan: Fluids: tolerating PO, fluid restrict 1500cc daily. Electrolytes: monitor and replete as needed. Nutrition: heart-healthy diet. DVT Prophylaxis: Early ambulation. SCDs. Lovenox GI Prophylaxis: Protonix 40mg daily given alcoholism. Disposition: discharge pending; PT has recommended rehab, but no insurance. Pt. is homeless so safe discharge has not be accomplished (Dora Montes De Oca MD R1) Problem Qualifiers (1) Contact dermatitis: Qualified Codes: L24.4 - Irritant contact dermatitis due to drugs in contact with skin (2) Humeral fracture: Dora Montes De Oca MD R1 Apr 11, 2017 10:27 Tasha Nye MD Apr 11, 2017 15:42
[2017-04-11 12:00] VITALS: BP 124/74; PULSE 100; RESP 16; TEMP 97.9; O2SAT 96
[2017-04-11 13:19] VITALS: BP 124/74; PULSE 100; RESP 17; TEMP 97.9; O2SAT 96
[2017-04-11] MEDS: ERGOCALCIFEROL (VIT D2) 50,000 UNIT CAP PO SCH (16:07)
== END 2017-04-11 16:58 | disposition home or self-care (01) | DRG 493 ==
LOC: NEPC 12:56 → NEDA 15:31 → N06A 16:52
PROVIDERS: ADMIT Family Medicine; ATTEND Family Medicine
PROC: 0PPD04Z Removal of Internal Fixation Device from Left Humeral Head, Open Approach (ICD-10-PCS; 2017-04-04)
PROC: 30233N1 Transfusion of Nonautologous Red Blood Cells into Peripheral Vein, Percutaneous Approach (ICD-10-PCS; 2017-04-04)
PROC: 0PSD04Z Reposition Left Humeral Head with Internal Fixation Device, Open Approach (ICD-10-PCS; principal; 2017-04-04 12:11)
DX: T84.121A Displacement of internal fixation device of left humerus, initial encounter (principal); S42.212A Unspecified displaced fracture of surgical neck of left humerus, initial encounter for closed fracture; E87.1 Hypo-osmolality and hyponatremia; D69.59 Other secondary thrombocytopenia; F32.9 Major depressive disorder, single episode, unspecified; G40.909 Epilepsy, unspecified, not intractable, without status epilepticus; I48.91 Unspecified atrial fibrillation; L03.311 Cellulitis of abdominal wall; L03.114 Cellulitis of left upper limb; F41.9 Anxiety disorder, unspecified; F17.210 Nicotine dependence, cigarettes, uncomplicated; R29.6 Repeated falls; F10.220 Alcohol dependence with intoxication, uncomplicated; Y90.6 Blood alcohol level of 120-199 mg/100 ml; W19.XXXA Unspecified fall, initial encounter; D64.9 Anemia, unspecified; E87.6 Hypokalemia; L25.9 Unspecified contact dermatitis, unspecified cause; Z91.14 Patient's other noncompliance with medication regimen; Z91.19 Patient's noncompliance with other medical treatment and regimen; Z59.0 Homelessness; Z85.828 Personal history of other malignant neoplasm of skin
CPT/HCPCS: 36415; 36430; 71010; 73030; 73070; 76000; 80048; 80053; 80307; 81001; 82948; 83605; 83690; 83735; 84100; 84155; 85014; 85018; 85025; 85610; 85730; 86850; 86900; 86901; 86920; 87015; 87040; 87070; 87102; 87116; 87176; 87205; 87206; 93005; 94664; 96360; C1713; J0690; J1170; J1580; J1650; J2270; J2370; J2405; J2710; J3010; J3370; J7030; J7050; J7120; J7613; P9016

== ENCOUNTER 2017-12-02 12:27 | Emergency (ER) | payer SELFPAY ==
[~2017-12-02] VITALS: Ht 170.2 cm; Wt 77.0 kg
[~2017-12-02 12:27] MED LIST: CALCTAB19 PO; HYDR-3580 PO; LEVE500 PO; METO25TA3 PO; SENN1TAB PO
[2017-12-02 12:44] VITALS: BP 109/59; PULSE 112; RESP 18; TEMP 97.3; O2SAT 100
[2017-12-02] MEDS ORDERED: THIAMINE HCL 100 MG TAB PO ONE (14:45)
[2017-12-02 15:36] LABS: AUTOMATED NEUTROPHIL # 3.5 TH/MM3 (1.8-7.7); BASOPHIL % 0.6 % (0.0-2.0); EOSINOPHIL # 0.1 TH/MM3 (0-0.4); HEMOGLOBIN 10.5 GM/DL (13.0-17.0); LYMPH % 36.8 % (9.0-44.0); LYMPHOCYTE # 2.6 TH/MM3 (1.0-4.8); MEAN CELL VOLUME 85.9 FL (80.0-100.0); MEAN CORPUSCULAR HEMOGLOBIN 29.1 PG (27.0-34.0); MEAN CORPUSCULAR HGB CONC 33.9 % (32.0-36.0); MEAN PLATELET VOLUME 7.7 FL (7.0-11.0); MONO % 11.3 % (0.0-8.0); MONOCYTE # 0.8 TH/MM3 (0-0.9); NEUT % 50.3 % (16.0-70.0); PLATELET COUNT 340 TH/MM3 (150-450); RED BLOOD COUNT 3.61 MIL/MM3 (4.50-5.90); RED CELL DISTRIBUTION WIDTH 15.7 % (11.6-17.2)
--- NOTE | 2017-12-02 15:40 | RADRPT ---
EXAM DATE: 12/02/2017 3:28 PM EDT AGE/SEX: 62 years / Male INDICATIONS: Trauma; fall. CLINICAL DATA: This is the patient's initial encounter. Patient reports that signs and symptoms have been present for 1 day and indicates a pain score of 5/10. MEDICAL/SURGICAL HISTORY: . Seizures. None. RADIATION DOSE: 36.93 CTDI (mGy) COMPARISON: [facility] [place] BRAIN W/O CONTRAST, 04/29/2016. . TECHNIQUE: CT of the head without contrast. Using automated exposure control and adjustment of the mA and/or kV according to patient size, radiation dose was kept as low as reasonably achievable to ob tain optimal diagnostic quality images. DICOM format image data is available electronically for revi ew and comparison. FINDINGS: Cerebrum: The ventricles are normal for age. No evidence of midline shift, mass lesion, hemorrhage or acute infarction. No extraaxial fluid collections are seen. Posterior Fossa: The cerebellum and brainstem are intact. The 4th ventricle is midline. The cerebe llopontine angle is unremarkable. Extracranial: The visualized portion of the orbits is intact. Skull: The calvaria is intact. No evidence of skull fracture. CONCLUSION: 1. No acute intracranial abnormalities. Cortical cerebral and cerebellar atrophy similar to 2016. Electronically signed by: Rg Nuñez MD 12/02/2017 3:39 PM EDT
--- NOTE | 2017-12-02 15:43 | RADRPT ---
EXAM DATE: 12/02/2017 3:35 PM EDT AGE/SEX: 62 years / Male INDICATIONS: Trauma; fall. CLINICAL DATA: This is the patient's initial encounter. Patient reports that signs and symptoms have been present for 1 day and indicates a pain score of Nonresponsive. MEDICAL/SURGICAL HISTORY: . seizures None. RADIATION DOSE: 12.46 CTDI (mGy) COMPARISON: No prior exams available for comparison. TECHNIQUE: Contiguous axial images were obtained using helical multirow detector technique. The vol umetric data was post-processed with multiplanar reconstruction in oblique axial, sagittal, and coron al planes. Using automated exposure control and adjustment of the mA and/or kV according to patient s ize, radiation dose was kept as low as reasonably achievable to obtain optimal diagnostic quality jenny ges. DICOM format image data is available electronically for review and comparison. FINDINGS: There is no acute fracture or spondylolisthesis. No prevertebral soft tissue swelling is present. Mod erate degenerative disc disease and facet arthropathy is present. No significant central canal stenos is. CONCLUSION: 1. Moderate degenerative change. No acute bony abnormalities. Electronically signed by: Rg Nuñez MD 12/02/2017 3:42 PM EDT
[2017-12-02] MEDS ORDERED: ACETAMINOPHEN 325 MG TAB PO ONE (15:45)
[2017-12-02] MEDS ORDERED: TETANUS/DIPHTHERIA TOXOID ADULT 0.5 ML VIAL IM ONE (15:45)
--- NOTE | 2017-12-02 15:51 | PD ---
HPI Chief Complaint: Fall Time Seen by Provider: 14:19 Travel History International Travel<30 days: No Contact w/Intl Traveler<30days: No Traveled to known affect area: No History of Present Illness HPI 62yo M with PMH of alcohol abuse and is homeless here with evaluation after fall. Pt said he only drank 2 beers. Said he was at [facility] and they amputated his right toe and he has been going for antibiotics and dressing change. Said he just finished antibiotics and now has no one to help him with dressing change. Pt complains of neck pain, back pain and said he is homeless. Denies any focal numbness or weakness but said he has unstable gait for months. Denies any chest pain, sob, n/v, abdominal pain. PFSH Past Medical History Arthritis: No Asthma: No Autoimmune Disease: No Blood Disorders: No Anxiety: Yes Depression: Yes Heart Rhythm Problems: No Cancer: Yes (SKIN) Cardiac Catheterization: No Cardiovascular Problems: No High Cholesterol: No Chemotherapy: No Chest Pain: No Congestive Heart Failure: No COPD: No Cerebrovascular Accident: No Diabetes: No Diminished Hearing: No Endocrine: No Gastrointestinal Disorders: No Genitourinary: No Headaches: No Hypertension: No Immune Disorder: No Implanted Vascular Access Dvce: No Musculoskeletal: Yes (HX OF LEFT SCIATICA) Neurologic: Yes Psychiatric: Yes Reproductive: No Respiratory: No Immunizations Current: No Migraines: No Myocardial Infarction: No Radiation Therapy: No Seizures: Yes Sleep Apnea: No Thyroid Disease: No Past Surgical History AICD: No Arteriovenous Shunt: No Coronary Artery Bypass Graft: No Insulin Pump: No Joint Replacement: No Pacemaker: No Other Surgery: Yes (CANCER SURGERY PER PATIENT) Social History Alcohol Use: Yes (4-5 BEERS A DAY) Tobacco Use: Yes (APPROX 10 CIGARETTES A DAY) Substance Use: No Allergies-Medications (Allergen,Severity, Reaction): Coded Allergies: penicillin G (Unverified Allergy, Severe, RASH, 12/02/17) Reported Meds & Prescriptions Reported Meds & Active Scripts Active Vitamin B-1 (Thiamine HCl) 100 Mg Tab 100 Mg PO DAILY 14 Days Senna Plus 8.6-50 mg (Sennosides-Docusate Sodium) 8.6 Mg-50 Mg Tab 1 Tab PO BID Take one tab in the morning and one tab in the evening to soften stools. Metoprolol Tartrate 25 Mg Tab 25 Mg PO BID Keppra (Levetiracetam) 500 Mg Tab 500 Mg PO BID Calcium 600+D 200 (Calcium Carbonate-Vitamin D) 600-200 Mg-Unit Tab 1 Tab PO BID Hydrocodone-Acetaminophen 7.5-325 mg Tab 1 Tab PO Q4H PRN Review of Systems Except as stated in HPI: all other systems reviewed are Neg Physical Exam Narrative GENERAL: 62yo M in mild distress. SKIN: Focused skin assessment warm/dry. HEAD: +Right forehead abrasion. EYES: Pupils equal and round. No scleral icterus. No injection or drainage. ENT: No nasal bleeding or discharge. Mucous membranes pink and moist. NECK: No step off. Tenderness from neck down to back. CARDIOVASCULAR: Regular rate and rhythm. No murmur appreciated. RESPIRATORY: No accessory muscle use. Clear to auscultation. Breath sounds equal bilaterally. GASTROINTESTINAL: Abdomen soft, non-tender, nondistended. MUSCULOSKELETAL: Right foot: +Sutures toes that looks clean and nonerythematous. DP 2+. +Ulcer in right heel. Left foot: +Sutures toes that looks clean and nonerythematous. DP 2+. NEUROLOGICAL: Awake and alert. No obvious cranial nerve deficits. Motor grossly within normal limits in all extremities. Sensation intact. Normal speech. Data Data Last Documented VS Vital Signs Date Time Temp Pulse Resp B/P (MAP) Pulse Ox O2 Delivery O2 Flow Rate FiO2 12/02/17 21:11 12/02/17 17:54 79 20 97 Room Air 12/02/17 12:[address] Brain W/O Iv Contrast(Rout) (12/02/17 ) Ct Cerv Spine W/O Contrast (12/02/17 ) Ct Thor Spine W/O Contrast (12/02/17 ) Ct Lumb Spine W/O Contrast (12/02/17 ) Thiamine (Vit B1) (Vitamin B1) (12/02/17 14:45) Complete Blood Count With Diff (12/02/17 14:39) Basic Metabolic Panel (Bmp) (12/02/17 14:39) Alcohol (Ethanol) (12/02/17 15:39) Tetanus/Diphtheria Tox Adult (Tetanus/Di (12/02/17 15:45) Acetaminophen (Tylenol) (12/02/17 15:45) Post Op Boot (Shoe) (12/02/17 ) Ed Discharge Order (12/02/17 19:40) Shoe Cast (12/02/17 ) Shoe Cast (12/02/17 ) Labs Laboratory Tests Test 12/02/17 15:15 White Blood Count 7.0 TH/MM3 Red Blood Count 3.61 MIL/MM3 Hemoglobin 10.5 GM/DL Hematocrit 31.0 % Mean Corpuscular Volume 85.9 FL Mean Corpuscular Hemoglobin 29.1 PG Mean Corpuscular Hemoglobin Concent 33.9 % Red Cell Distribution Width 15.7 % Platelet Count 340 TH/MM3 Mean Platelet Volume 7.7 FL Neutrophils (%) (Auto) 50.3 % Lymphocytes (%) (Auto) 36.8 % Monocytes (%) (Auto) 11.3 % Eosinophils (%) (Auto) 1.0 % Basophils (%) (Auto) 0.6 % Neutrophils # (Auto) 3.5 TH/MM3 Lymphocytes # (Auto) 2.6 TH/MM3 Monocytes # (Auto) 0.8 TH/MM3 Eosinophils # (Auto) 0.1 TH/MM3 Basophils # (Auto) 0.0 TH/MM3 CBC Comment DIFF FINAL Differential Comment Blood Urea Nitrogen 7 MG/DL Creatinine 0.84 MG/DL Random Glucose 70 MG/DL Calcium Level 8.9 MG/DL Sodium Level 134 MEQ/L Potassium Level 3.4 MEQ/L Chloride Level 100 MEQ/L Carbon Dioxide Level 19.1 MEQ/L Anion Gap 15 MEQ/L Estimat Glomerular Filtration Rate 93 ML/MIN Ethyl Alcohol Level 80 MG/DL MDM Medical Decision Making Medical Screen Exam Complete: Yes Emergency Medical Condition: Yes Differential Diagnosis Malingering vs. ICH vs. alcohol intoxication Narrative Course 62yo M with alcohol abuse here with abrasion in right forehead abrasion. CT cervical spine showed moderate degenerative change. No bony abnormality. CT brain showed no acute intracranial abnormality. CT LS showed no acute fracture. CT TS showed no acute bony abnormality. Labs reviewed, no leukocytosis. H/H low but at baseline. BMP unremarkable. Glucose 70, will give pt juice/food. Pt is well appearing. Pt will need wound care. Pt has dressing dated on 11/30/17 so pt has been getting good wound care. He cannot tell me when the sutures have to come out. Instructed pt to follow up with the doctor who did the procedure. Also will put our global regulatory lead's information for pt to follow up with as well. Called continuous pillowcase cutter to evaluate the patient. She gave him cab voucher and we ordered post op shoes for him to follow up with his surgeon. Diagnosis Primary Impression: Fall Qualified Codes: W19.XXXA - Unspecified fall, initial encounter Referrals: Allegra Perez DPM call for appointment Patient Instructions: General Instructions Departure Forms: Tests/Procedures Additional Instructions: Please follow up with your surgeon or our global regulatory lead if you are unable to follow up with your own physician. Med/Other Pt SpecificInfo: Prescription(s) given Scripts Thiamine (Vitamin B-1) 100 Mg Tab 100 MG PO DAILY for Nutritional Supplement for 14 Days, #14 TAB 0 Refills Prov: Shahzad Espinoza MD 12/02/17 Disposition: 01 DISCHARGE HOME Condition: Stable Kristen Bowles Dec 02, 2017 15:51
--- NOTE | 2017-12-02 16:00 | RADRPT ---
EXAM DATE: 12/02/2017 3:52 PM EDT AGE/SEX: 62 years / Male INDICATIONS: Trauma; fall. CLINICAL DATA: This is the patient's initial encounter. Patient reports that signs and symptoms have been present for 1 day and indicates a pain score of 5/10. MEDICAL/SURGICAL HISTORY: . seizures None. RADIATION DOSE: 37.14 CTDI (mGy) ; Combined studies COMPARISON: No prior exams available for comparison. TECHNIQUE: Contiguous axial images were acquired using a multirow detector CT scanner without contra st. Multiplanar reconstruction in the sagittal and coronal planes was performed. Using automated exp osure control and adjustment of the mA and/or kV according to patient size, radiation dose was kept a s low as reasonably achievable to obtain optimal diagnostic quality images. DICOM format image data is available electronically for review and comparison. FINDINGS: There is mild degenerative disc disease. No fracture or spondylolisthesis. No bony canal stenosis. Th ere is some focal linear airspace disease in the right lung posteriorly. CONCLUSION: 1. No acute bony abnormality. Electronically signed by: Rg Nuñez MD 12/02/2017 3:59 PM EDT
--- NOTE | 2017-12-02 16:03 | RADRPT ---
EXAM DATE: 12/02/2017 3:54 PM EDT AGE/SEX: 62 years / Male INDICATIONS: Trauma; fall. CLINICAL DATA: This is the patient's initial encounter. Patient reports that signs and symptoms have been present for 1 day and indicates a pain score of 5/10. MEDICAL/SURGICAL HISTORY: . Seizures. None. RADIATION DOSE: 37.14 CTDI (mGy) ; Combined studies COMPARISON: No prior exams available for comparison. TECHNIQUE: Contiguous axial images were acquired with a multirow detector CT scanner without contras t. Multiplanar reconstructions in the sagittal and coronal plane were also performed. Using automate d exposure control and adjustment of the mA and/or kV according to patient size, radiation dose was k ept as low as reasonably achievable to obtain optimal diagnostic quality images. DICOM format image data is available electronically for review and comparison. FINDINGS: No acute fracture. There are bilateral pars defects with a grade 1/2 anterolisthesis of L5 on S1 with severe bilateral foraminal stenosis. Minimal retrolisthesis of L4 on L5. No significant bony canal s tenosis. CONCLUSION: 1. No acute fracture. 2. Bilateral pars defects with grade 1/2 anterolisthesis of L5 on S1 and minimal retrolisthesis of L 4 on L5. Electronically signed by: Rg Nuñez MD 12/02/2017 4:01 PM EDT
[2017-12-02 16:05] LABS: BICARBONATE 19.1 MEQ/L (21.0-32.0); CALCIUM 8.9 MG/DL (8.5-10.1); CREATININE 0.84 MG/DL (0.60-1.30)
[2017-12-02] MEDS ORDERED: VITA100T54 PO ×2 (17:04→20:18)
[2017-12-02 17:54] VITALS: BP 134/76; PULSE 79; RESP 20; O2SAT 97
== END 2017-12-02 21:11 | disposition home or self-care (01) ==
LOC: NEPC 12:27
DX: S00.81XA Abrasion of other part of head, initial encounter (principal); F10.10 Alcohol abuse, uncomplicated; Y90.4 Blood alcohol level of 80-99 mg/100 ml; W19.XXXA Unspecified fall, initial encounter; Z23 Encounter for immunization
CPT/HCPCS: 70450; 72125; 72128; 72131; 80048; 80307; 85025; 90471; 90714; 99284; L3260